=== PATIENT | female | born 1980 | race Caucasian/White ===

== ENCOUNTER 2016-07-09 11:37 | Emergency (ER) | payer BC ==
[2016-07-09] MEDS ORDERED: MORPHINE 4 MG/ML 1ML SYRINGE As Ordered ONE (12:20)
[2016-07-09 12:34] LABS: BASO % 0.5 % (0.0-1.0); EOS # 0.2 K/mm3 (0.0-0.50); EOS % 1.8 % (0.0-3.0); LARGE UNSTAINED CELL # 0.1 K/mm3 (0.0-0.4); LARGE UNSTAINED CELL % 1.3 % (0.0-4.0); LYMPH # 2.2 K/mm3 (1.5-4.5); LYMPH % 24.1 % (24.0-44.0); MEAN CORPUSCULAR HEMOGLOBIN 28.6 pg (27.0-33.0); MEAN CORPUSCULAR HGB CONC 33.5 g/dl (32.0-36.5); MEAN CORPUSCULAR VOLUME 85.5 fl (80.0-96.0); MONO # 0.4 K/mm3 (0.0-0.8); MONO % 4.9 % (0.0-5.0); NEUTROPHILS # 6.1 K/mm3 (1.8-7.7); NEUTROPHILS % 67.5 % (36.0-66.0); PLATELET COUNT, AUTOMATED 366 k/mm3 (150-450); RED CELL DISTRIBUTION WIDTH 12.2 % (11.5-14.5)
[2016-07-09 13:10] LABS: ALBUMIN 3.7 GM/DL (3.2-5.2); ALBUMIN/GLOBULIN RATIO 1.12 (1.00-1.93); ALKALINE PHOSPHATASE 65 U/L (45-117); ALT/SGPT 20 U/L (12-78); AMYLASE 51 U/L (25-115); ANION GAP 7 MEQ/L (8-16); AST/SGOT 7 U/L (15-37); BILIRUBIN,DIRECT 0.1 MG/DL (0.0-0.2); BILIRUBIN,TOTAL 0.4 MG/DL (0.2-1.0); BLOOD UREA NITROGEN 8 MG/DL (7-18); CALCIUM LEVEL 8.4 MG/DL (8.5-10.1); CARBON DIOXIDE LEVEL 27 MEQ/L (21-32); CHLORIDE LEVEL 107 MEQ/L (98-107); CREATININE FOR GFR 0.66 MG/DL (0.55-1.02); GLOMERULAR FILTRATION RATE > 60.0 (>60); GLUCOSE, FASTING 86 MG/DL (70-105); POTASSIUM SERUM 3.7 MEQ/L (3.5-5.1); SODIUM LEVEL 141 MEQ/L (136-145)
[2016-07-09] MEDS ORDERED: ISOVUE-370 76% 100ML VIAL (Q9967) As Ordered ONE (13:13)
[2016-07-09] MEDS ORDERED: KETOROLAC 30 MG/ML VIAL (J1885) As Ordered ONE (14:04)
--- NOTE | 2016-07-09 14:20 | REP ---
CT abdomen and pelvis with IV but without oral contrast: History: Appendicitis. CT contrast dose: 100 mL of Isovue 370 is administered intravenously. No comparison CT study. Findings: Digital heat treat supervisor radiograph shows an unremarkable gas pattern. The lung bases are clear. The liver and the spleen are normal in size and homogeneous in texture. No adrenal lesion is seen. The pancreas and the gallbladder are unremarkable. The kidneys enhance symmetrically and are morphologically intact. No retroperitoneal mass or adenopathy is seen. A normal appearing appendix is seen in the central pelvis. There is no CT evidence of appendicitis. No uterine or ovarian abnormality is seen on either side. No pelvic mass or adenopathy is seen. No free fluid is noted. Urinary bladder is unremarkable. No abdominal wall defect is seen. No bony destructive lesion is appreciated. Impression: No CT evidence of appendicitis. Negative CT study abdomen and pelvis with IV contrast. Signed by Parth Bond MD 07/09/2016 02:50 P
--- NOTE | 2016-07-09 15:27 | REP ---
PELVIC ULTRASOUND: Real-time sonographic evaluation of the pelvis is performed utilizing transabdominal and endovaginal technique. The urinary bladder measures 9.9 x 5.2 x 7.7 cm. Uterus measures 7.6 x 3.9 x 5.3 cm. Endometrial thickness is 3 mm. Junctional zone is not well defined and there is acoustic shadowing limiting evaluation of the endometrium. Findings suggest adenomyosis. Ovaries are normal in size and echotexture, right ovary measuring 3.6 x 1.9 x 2.7 cm and left ovary 4.0 x 2.5 x 3.0 cm. There is no adnexal mass or free fluid. No torsion is seen, with blood flow seen in each ovary with duplex Doppler evaluation. IMPRESSION: Findings suggesting adenomyosis of the uterus. Endometrial thickness approximately 3 mm. No adnexal mass, free fluid or torsion. Signed by Maurizio Salazar MD 07/09/2016 05:05 P
--- NOTE | 2016-07-09 16:13 | EDDOCDS ---
Nurse's Notes [facility] Name: Hailee Bond Age: 35 yrs Sex: Female : 1980 Arrival Date: 07/09/2016 Time: 11:37 Bed I4 / M4 Private MD: Markus Finley W Diagnosis: Pelvic and perineal pain-uterine adenomyosis Presentation: 07/09 11:53 Presenting complaint: Patient states: dr Finley sent for possible appendicitis. Patient hs1 states abdominal pain started a couple days ago and has been on and off. Patient started to be steady around 730pm. Patient denies nausea and states no appetite for a couple days. Adult Sepsis Screening: The patient does not have new or worsening altered mentation. Patient's respiratory rate is less than 22. Systolic blood pressure is greater than 100. Patient has a qSOFA score of 0- Negative Sepsis Screen. Suicide/Homicide risk assessment- the patient denies having any suicidal and/or homicidal ideations and does not present with any other emotional, behavioral or mental health complaints. Status: Patient is not a water pump servicer or dependent. Transition of care: patient was not received from another setting of care. 11:53 Acuity: AMAYA Level 3 hs1 11:53 Method Of Arrival: Walkin/Carried/Asstd hs1 Triage Assessment: 11:56 General: Appears in no apparent distress, Behavior is appropriate for age, cooperative. hs1 Pain: Pain currently is 8 out of 10 on a pain scale. HIV screening NA for this visit Offered previously. Neurological: No deficits noted. Respiratory: No deficits noted. GI: Reports nausea, no appetite. Derm: Skin is pink, warm & dry. normal. Historical: - Allergies: SULFA (SULFONAMIDES); - Home Meds: 1. none - PMHx: none; - PSHx: ablation uterine; Bladder suspension; D & C; - Social history: Smoking status: Patient states was never smoker of tobacco. No barriers to communication noted, The patient speaks fluent Mexican, Speaks appropriately for age. - Family history: Not pertinent. - : The pt / caregiver states he / she is not on anticoagulants. Home medication list is obtained from the patient. - Exposure Risk Screening:: None identified. Screenin:25 Screening information is obtained from the patient. Fall risk: No risks identified. khadra Assistance ADL's: requires no assistance with activities of daily living. Abuse/DV Screen: The patient / caregiver reports he/she is: not in a situation that causes fear, pain or injury. Nutritional screening: No deficits noted. Advance Directives: Currently, there is no health care proxy. There is no active DNR order. There is no living will. There is no Power of Shoer. Advance directive information has not previously been placed in an [facility] medical record. home support is adequate. Assessment: 12:25 General: Appears in no apparent distress, skin warm and dry color satisfactory. moist jmk pink oral mucosa/ indicates right groin pain. abd soft and non distended with bowel sounds present x 4. + rebound tenderness . GI: Abdomen is non- distended obese, Bowel sounds present X 4 quads. Abd is soft X 4 quads Abd is tender to palpation in right lower quadrant and left lower quadrant Abdomen has rebound tenderness in right lower quadrant. 12:57 General: Appears states pain has decreased to 7/10. jmk 13:22 General: Pt ambulatory to CT and returned IV site remains patent and clear.. dls Vital Signs: 11:38 BP 131 / 69; Pulse 70; Resp 18 S; Temp 97.4(O); Pulse Ox 100% on R/A; Weight 82.55 kg dd6 (R); Height 5 ft. 4 in. (162.56 cm) (R); 12:38 BP 110 / 55; Pulse 66; Resp 20; Temp 98.2(TE); Pulse Ox 98% on R/A; Pain 7/10; jml1 16:00 BP 107 / 57; Pulse 62; Resp 20; Temp 97.7(O); Pulse Ox 98% on R/A; Pain 0/10; jml1 11:38 Body Mass Index 31.24 (82.55 kg, 162.56 cm) dd6 Vitals: 11:38 Log In Time: July 09, 2016 at 11:36. dd6 ED Course: 11:38 Patient visited by Bassam Watkins PCA. dd6 11:38 Markus Finley is Private Physician. dd6 11:38 Patient moved to Waiting dd6 11:39 Patient moved to Pre RCE dd6 11:54 Triage Initiated hs1 11:56 Patient moved to Triage 2 hs1 11:57 [facility]izwan Canales [facility]C [facility] ar2 11:57 Jl Nuñez MD is Attending Physician. ar2 11:58 Patient visited by Rizwan Canales PA-C. ar2 12:02 Patient moved to I4 / M4 js13 12:18 Patient visited by Candido Marques. jml1 12:18 UA Sent. jml1 12:25 The patient / caregiver is instructed regarding the plan of care and ED course. jmk 12:25 Inserted saline lock: 20 gauge in right antecubital area. jmk 12:27 Patient visited by Ky Sears,RN. jmk 12:39 Patient visited by Candido Marques. jml1 12:58 Patient visited by Ky Sears,SILVIO. jmk 13:54 Patient name changed from Hailee\S\\S\Bond\S\ to Hailee\S\ \S\Bond. EDMS 13:55 [facility] Payment Agreement was scanned into [employer] and attached to record. lg 14:00 CT ABD & PELVIS: IV Contrast Only Returned. dls 14:01 Patient visited by Mindy Morales RN. dls 14:03 Patient moved to Ultrasound eg2 14:38 Patient moved to I4 / M4 eg2 14:44 CT ABD & PELVIS: IV Contrast Only Returned. EDMS 15:02 Patient visited by Candido Marques. jml1 15:40 Lakeisha Swift MD is Referral Physician. ar2 15:57 -US Pelvic Non-Ob Complete Returned. EDMS 15:57 DUPLEX SCAN LIMITED (DOPPLER)+US Returned. EDMS 15:57 Transvaginal NON- US Returned. EDMS 16:00 Patient visited by Candido Marques. jml1 16:11 No procedures done that require assistance. dls 16:11 Discontinued IV lock intact, bleeding controlled, pressure dressing applied, No dls redness/swelling at site. Administered Medications: 12:24 Drug: morphine 4 mg Route: IVP; Site: right antecubital; jmk 12:25 Drug: NS 0.9% 1000 ml Route: IV; Rate: bolus; Site: right antecubital; jmk 16:09 Follow up: IV Status: Completed infusion dls 14:47 Drug: ketorolac 30 mg [ketorolac 30 mg/mL (1 mL) injection solution (1 mL)] Route: IVP; dls Site: right antecubital; Point of Care Testing: Urine : 12:17 hCG Reading: Negative; jml1 Ranges: Order Results: Lab Order: Amylase; SPEC'M 07/09/16 12:38 Test: AMYLASE; Value: 51; Range: 25-115; Units: U/L; Status: F Lab Order: Basic Metabolic Profile; SPEC'M 07/09/16 12:38 Test: GLUCOSE, FASTING; Value: 86; Range: 70-105; Units: MG/DL; Status: F Test: BLOOD UREA NITROGEN; Value: 8; Range: 7-18; Units: MG/DL; Status: F Test: CREATININE FOR GFR; Value: 0.66; Range: 0.55-1.02; Units: MG/DL; Status: F Test: GLOMERULAR FILTRATION RATE; Value: > 60.0; Range: >60; Status: F Test: SODIUM LEVEL; Value: 141; Range: 136-145; Units: MEQ/L; Status: F Test: POTASSIUM SERUM; Value: 3.7; Range: 3.5-5.1; Units: MEQ/L; Status: F Test: CHLORIDE LEVEL; Value: 107; Range: 98-107; Units: MEQ/L; Status: F Test: CARBON DIOXIDE LEVEL; Value: 27; Range: 21-32; Units: MEQ/L; Status: F Test: ANION GAP; Value: 7; Range: 8-16; Abnormal: Below low normal; Units: MEQ/L; Status: F Test: CALCIUM LEVEL; Value: 8.4; Range: 8.5-10.1; Abnormal: Below low normal; Units: MG/DL; Status: F Test Note: ; Units are mL/min/1.73 m2 Chronic Kidney Disease Staging per NKF: Stage I & II GFR >=60 Normal to Mildly Decreased Stage III GFR 30-59 Moderately Decreased Stage IV GFR 15-29 Severely Decreased Stage V GFR <15 Very Little GFR Left ESRD GFR <15 on DIRECTOR SECURITY MANAGEMENT Lab Order: CBC with Diff; SPEC'M 07/09/16 12:13 Test: WHITE BLOOD COUNT; Value: 9.0; Range: 4.0-10.0; Units: K/mm3; Status: F Test: RED BLOOD COUNT; Value: 4.82; Range: 4.00-5.40; Units: M/mm3; Status: F Test: HEMOGLOBIN; Value: 13.8; Range: 12.0-16.0; Units: g/dl; Status: F Test: HEMATOCRIT; Value: 41.2; Range: 36.0-47.0; Units: %; Status: F Test: MEAN CORPUSCULAR VOLUME; Value: 85.5; Range: 80.0-96.0; Units: fl; Status: F Test: MEAN CORPUSCULAR HEMOGLOBIN; Value: 28.6; Range: 27.0-33.0; Units: pg; Status: F Test: MEAN CORPUSCULAR HGB CONC; Value: 33.5; Range: 32.0-36.5; Units: g/dl; Status: F Test: RED CELL DISTRIBUTION WIDTH; Value: 12.2; Range: 11.5-14.5; Units: %; Status: F Test: PLATELET COUNT, AUTOMATED; Value: 366; Range: 150-450; Units: k/mm3; Status: F Test: NEUTROPHILS %; Value: 67.5; Range: 36.0-66.0; Abnormal: Above high normal; Units: %; Status: F Test: LYMPH %; Value: 24.1; Range: 24.0-44.0; Units: %; Status: F Test: MONO %; Value: 4.9; Range: 0.0-5.0; Units: %; Status: F Test: EOS %; Value: 1.8; Range: 0.0-3.0; Units: %; Status: F Test: BASO %; Value: 0.5; Range: 0.0-1.0; Units: %; Status: F Test: LARGE UNSTAINED CELL %; Value: 1.3; Range: 0.0-4.0; Units: %; Status: F Test: NEUTROPHILS #; Value: 6.1; Range: 1.8-7.7; Units: K/mm3; Status: F Test: LYMPH #; Value: 2.2; Range: 1.5-4.5; Units: K/mm3; Status: F Test: MONO #; Value: 0.4; Range: 0.0-0.8; Units: K/mm3; Status: F Test: EOS #; Value: 0.2; Range: 0.0-0.50; Units: K/mm3; Status: F Test: BASO #; Value: 0.0; Range: 0.0-0.2; Units: K/mm3; Status: F Test: LARGE UNSTAINED CELL #; Value: 0.1; Range: 0.0-0.4; Units: K/mm3; Status: F Lab Order: Lipase; SPEC'M 07/09/16 12:38 Test: LIPASE; Value: 108; Range: 73-393; Units: U/L; Status: F Lab Order: Liver Profile; SPEC'M 07/09/16 12:38 Test: AST/SGOT; Value: 7; Range: 15-37; Abnormal: Below low normal; Units: U/L; Status: F Test: ALT/SGPT; Value: 20; Range: 12-78; Units: U/L; Status: F Test: ALKALINE PHOSPHATASE; Value: 65; Range: 45-117; Units: U/L; Status: F Test: BILIRUBIN,TOTAL; Value: 0.4; Range: 0.2-1.0; Units: MG/DL; Status: F Test: BILIRUBIN,DIRECT; Value: 0.1; Range: 0.0-0.2; Units: MG/DL; Status: F Test: TOTAL PROTEIN; Value: 7.0; Range: 6.4-8.2; Units: GM/DL; Status: F Test: ALBUMIN; Value: 3.7; Range: 3.2-5.2; Units: GM/DL; Status: F Test: ALBUMIN/GLOBULIN RATIO; Value: 1.12; Range: 1.00-1.93; Status: F Lab Order: UA; SPEC'M 07/09/16 12:13 Test: APPEARANCE, URINE; Value: CLEAR; Range: CLEAR; Status: F Test: COLOR, URINE; Value: STRAW; Range: YELLOW; Status: F Test: PH,URINE; Value: 7.0; Range: 5.0-9.0; Units: UNITS; Status: F Test: SPECIFIC GRAVITY URINE AUTO; Value: 1.008; Range: 1.002-1.035; Status: F Test: PROTEIN, URINE AUTO; Value: NEGATIVE; Range: NEGATIVE; Units: mg/dL; Status: F Test: GLUCOSE, URINE (UA) AUTO; Value: NEGATIVE; Range: NEGATIVE; Units: mg/dL; Status: F Test: KETONE, URINE AUTO; Value: NEGATIVE; Range: NEGATIVE; Units: mg/dL; Status: F Test: UROBILINOGEN, URINE AUTO; Value: 0.2; Range: 0.0-2.0; Units: mg/dL; Status: F Test: BILIRUBIN, URINE AUTO; Value: NEGATIVE; Range: NEGATIVE; Status: F Test: NITRITE, URINE AUTO; Value: NEGATIVE; Range: NEGATIVE; Status: F Test: LEUKOCYTE ESTERASE, URINE AUTO; Value: NEGATIVE; Range: NEGATIVE; Status: F Test: BLOOD, URINE BLOOD; Value: NEGATIVE; Range: NEGATIVE; Status: F Test: WBC, URINE AUTO; Value: 1; Range: 0-3; Units: /HPF; Status: F Test: RBC, URINE AUTO; Value: 1; Range: 0-3; Units: /HPF; Status: F Test: BACTERIA, URINE AUTO; Value: NEGATIVE; Range: NEGATIVE; Status: F Test: SQUAMOUS EPITHELIAL CELL UR AU; Value: 2; Range: 0-6; Units: /HPF; Status: F Test: HYALINE CAST, URINE AUTO; Value: 0; Range: 0-1; Units: /LPF; Status: F Radiology Order: CT ABD & PELVIS: IV Contrast Only Test: CT ABD & PELVIS: IV Contrast Only REASON FOR EXAMINATION: Appendicitis; CT abdomen and pelvis with IV but without oral contrast:; ; History: Appendicitis.; ; CT contrast dose: 100 mL of Isovue 370 is administered intravenously. No; comparison CT study.; ; Findings: Digital creative technologist radiograph shows an unremarkable gas pattern. The lung; bases are clear.; ; The liver and the spleen are normal in size and homogeneous in texture. No; adrenal lesion is seen. The pancreas and the gallbladder are unremarkable. The; kidneys enhance symmetrically and are morphologically intact. No retroperitoneal; mass or adenopathy is seen. A normal appearing appendix is seen in the central; pelvis. There is no CT evidence of appendicitis. No uterine or ovarian; abnormality is seen on either side. No pelvic mass or adenopathy is seen. No; free fluid is noted. Urinary bladder is unremarkable. No abdominal wall defect; is seen. No bony destructive lesion is appreciated.; ; Impression:; ; No CT evidence of appendicitis. Negative CT study abdomen and pelvis with IV; contrast.; ; ; Signed by; Parth Bond MD 07/09/2016 02:50 P; Radiology Order: -US Pelvic Non-Ob Complete Test: -US Pelvic Non-Ob Complete REASON FOR EXAMINATION: right;Adnexal Pain r/o Torsion; ; PELVIC ULTRASOUND:; ; Real-time sonographic evaluation of the pelvis is performed utilizing; transabdominal and endovaginal technique. The urinary bladder measures 9.9 x 5.2; x 7.7 cm. Uterus measures 7.6 x 3.9 x 5.3 cm. Endometrial thickness is 3 mm.; Junctional zone is not well defined and there is acoustic shadowing limiting; evaluation of the endometrium. Findings suggest adenomyosis. Ovaries are normal; in size and echotexture, right ovary measuring 3.6 x 1.9 x 2.7 cm and left ovary; 4.0 x 2.5 x 3.0 cm. There is no adnexal mass or free fluid. No torsion is seen,; with blood flow seen in each ovary with duplex Doppler evaluation.; ; IMPRESSION:; Findings suggesting adenomyosis of the uterus. Endometrial thickness; approximately 3 mm. No adnexal mass, free fluid or torsion.; ; ; ; Unreviewed; Radiology Order: DUPLEX SCAN LIMITED (DOPPLER)+US Test: DUPLEX SCAN LIMITED (DOPPLER)+US REASON FOR EXAMINATION: Adnexal Pain r/o Torsion; ; PELVIC ULTRASOUND:; ; Real-time sonographic evaluation of the pelvis is performed utilizing; transabdominal and endovaginal technique. The urinary bladder measures 9.9 x 5.2; x 7.7 cm. Uterus measures 7.6 x 3.9 x 5.3 cm. Endometrial thickness is 3 mm.; Junctional zone is not well defined and there is acoustic shadowing limiting; evaluation of the endometrium. Findings suggest adenomyosis. Ovaries are normal; in size and echotexture, right ovary measuring 3.6 x 1.9 x 2.7 cm and left ovary; 4.0 x 2.5 x 3.0 cm. There is no adnexal mass or free fluid. No torsion is seen,; with blood flow seen in each ovary with duplex Doppler evaluation.; ; IMPRESSION:; Findings suggesting adenomyosis of the uterus. Endometrial thickness; approximately 3 mm. No adnexal mass, free fluid or torsion.; ; ; ; Unreviewed; Radiology Order: Transvaginal NON- US Test: Transvaginal NON- US REASON FOR EXAMINATION: EVALUATE UTERUS AND OVARIES; ; PELVIC ULTRASOUND:; ; Real-time sonographic evaluation of the pelvis is performed utilizing; transabdominal and endovaginal technique. The urinary bladder measures 9.9 x 5.2; x 7.7 cm. Uterus measures 7.6 x 3.9 x 5.3 cm. Endometrial thickness is 3 mm.; Junctional zone is not well defined and there is acoustic shadowing limiting; evaluation of the endometrium. Findings suggest adenomyosis. Ovaries are normal; in size and echotexture, right ovary measuring 3.6 x 1.9 x 2.7 cm and left ovary; 4.0 x 2.5 x 3.0 cm. There is no adnexal mass or free fluid. No torsion is seen,; with blood flow seen in each ovary with duplex Doppler evaluation.; ; IMPRESSION:; Findings suggesting adenomyosis of the uterus. Endometrial thickness; approximately 3 mm. No adnexal mass, free fluid or torsion.; ; ; ; Unreviewed; Outcome: 15:41 Discharge ordered by Provider. ar2 16:11 Discharge Assessment: Patient awake, alert and oriented x 3. No cognitive and/or dls functional deficits noted. Patient verbalized understanding of disposition instructions. patient administered narcotics - no. The following High Risk Discharge criteria are identified: None. Discharged to home ambulatory, with significant other. Condition: stable Condition: improved. Discharge instructions given to patient, Instructed on discharge instructions, follow up and referral plans. medication usage, Demonstrated understanding of instructions, medications, Pt was receptive of discharge instructions/ teaching. Prescriptions given X 1. CT Study completed. Property sent home with patient. 16:13 Patient left the ED. dls Signatures: Dispatcher [employer] EDMS Ky Sears,RN RN Mindy Alvarez RN RN dls Carola Pineda, Emery Reg Tania Bucio eg2 Rizwan Canales PA-C PA-C ar2 Bassam Watkins, TRANSFORMER MECHANIC TRANSFORMER MECHANIC dd6 Cammy Ortez RN RN hs1 Candido Marques jml1 Perez,Thania,RN RN js13 MTDD
--- NOTE | 2016-07-09 16:13 | EDDOCDS ---
Physician Documentation [facility] Name: Hailee Bond Age: 35 yrs Sex: Female : 1980 Arrival Date: 07/09/2016 Time: 11:37 Bed I4 / M4 Private MD: Markus Finley W Disposition: 07/09/16 15:41 Discharged to Home/Self Care. Impression: Pelvic and perineal pain - uterine adenomyosis. - Condition is Stable. - Discharge Instructions: Pelvic Pain, Female. - Prescriptions for Ibuprofen 800 mg Oral Tablet - take 1 tablet by ORAL route every 8 hours As needed take with food; 30 tablet. - Medication Reconciliation, Local Pharmacy Hours form. - Follow up: Lakeisha Swift MD; When: Call to arrange an appointment; Reason: Recheck today's complaints, Continuance of care. - Problem is new. - Symptoms have improved. Historical: - Allergies: SULFA (SULFONAMIDES); - Home Meds: 1. none - PMHx: none; - PSHx: ablation uterine; Bladder suspension; D & C; - Social history: Smoking status: Patient states was never smoker of tobacco. No barriers to communication noted, The patient speaks fluent Arabic, Speaks appropriately for age. - Family history: Not pertinent. - : The pt / caregiver states he / she is not on anticoagulants. Home medication list is obtained from the patient. - Exposure Risk Screening:: None identified. Vital Signs: 07/09 11:38 BP 131 / 69; Pulse 70; Resp 18 S; Temp 97.4(O); Pulse Ox 100% on R/A; Weight 82.55 kg / dd6 181.99 lbs (R); Height 5 ft. 4 in. (162.56 cm) (R); 12:38 BP 110 / 55; Pulse 66; Resp 20; Temp 98.2(TE); Pulse Ox 98% on R/A; Pain 7/10; jml1 16:00 BP 107 / 57; Pulse 62; Resp 20; Temp 97.7(O); Pulse Ox 98% on R/A; Pain 0/10; jml1 11:38 Body Mass Index 31.24 (82.55 kg, 162.56 cm) dd6 MDM: 12:04 IV Saline Lock ordered. ar2 12:04 Undress patient appropriately for examination ordered. ar2 12:04 UCG by Nursing ordered. ar2 12:04 morphine 4 mg IVP once ordered. ar2 12:04 NS 0.9% 1000 ml IV at bolus once ordered. ar2 12:05 Amylase Ordered. EDMS 12:05 Basic Metabolic Profile Ordered. EDMS 12:05 CBC with Diff Ordered. EDMS 12:05 Lipase Ordered. EDMS 12:05 Liver Profile Ordered. EDMS 12:05 UA Ordered. EDMS 12:05 NOTHING BY MOUTH+DIET ordered. EDMS 12:28 CT ABD & PELVIS: IV Contrast Only Ordered. EDMS 12:31 Financial registration complete. lg 13:05 CBC with Diff Reviewed. ar2 13:05 UA Reviewed. ar2 13:53 Basic Metabolic Profile Reviewed. ar2 13:53 Liver Profile Reviewed. ar2 13:53 Amylase Reviewed. ar2 13:53 Lipase Reviewed. ar2 13:54 ketorolac 30 mg IVP once ordered. ar2 13:55 [facility] Payment Agreement was scanned into [employer] and attached to record. lg 13:55 -US Pelvic Non-Ob Complete Ordered. EDMS 13:55 DUPLEX SCAN LIMITED (DOPPLER)+US Ordered. EDMS 14:21 Transvaginal NON- US Ordered. EDMS Point of Care Testing: Urine : 12:17 hCG Reading: Negative; jml1 Ranges: Administered Medications: 12:24 Drug: morphine 4 mg Route: IVP; Site: right antecubital; jmk 12:25 Drug: NS 0.9% 1000 ml Route: IV; Rate: bolus; Site: right antecubital; jmk 16:09 Follow up: IV Status: Completed infusion dls 14:47 Drug: ketorolac 30 mg [ketorolac 30 mg/mL (1 mL) injection solution (1 mL)] Route: IVP; dls Site: right antecubital; Signatures: Dispatcher [employer] EDMS Ky Sears RN RN jmk Scott, Debra, RN RN dls Ganter, LoriLee, Emery Land lg Rizwan Canales, PA-C PA-C ar2 Cammy Ortez RN RN hs1 The chart was reviewed and I authenticate all verbal orders and agree with the evaluation and treatment provided.Attachments: 13:55 [facility] Payment Agreement lg MTDD
--- NOTE | 2016-07-11 17:13 | EDDOCDS ---
Physician Documentation [facility] Name: Hailee Bond Age: 35 yrs Sex: Female : 1980 Arrival Date: 07/09/2016 Time: 11:37 Bed I4 / M4 Private MD: Markus Finley W Disposition: 07/09/16 15:41 Discharged to Home/Self Care. Impression: Pelvic and perineal pain - uterine adenomyosis. - Condition is Stable. - Discharge Instructions: Pelvic Pain, Female. - Prescriptions for Ibuprofen 800 mg Oral Tablet - take 1 tablet by ORAL route every 8 hours As needed take with food; 30 tablet. - Medication Reconciliation, Local Pharmacy Hours form. - Follow up: Lakeisha Swift MD; When: Call to arrange an appointment; Reason: Recheck today's complaints, Continuance of care. - Problem is new. - Symptoms have improved. Historical: - Allergies: SULFA (SULFONAMIDES); - Home Meds: 1. none - PMHx: none; - PSHx: ablation uterine; Bladder suspension; D & C; - Social history: Smoking status: Patient states was never smoker of tobacco. No barriers to communication noted, The patient speaks fluent [place], Speaks appropriately for age. - Family history: Not pertinent. - : The pt / caregiver states he / she is not on anticoagulants. Home medication list is obtained from the patient. - Exposure Risk Screening:: None identified. Vital Signs: 07/09 11:38 BP 131 / 69; Pulse 70; Resp 18 S; Temp 97.4(O); Pulse Ox 100% on R/A; Weight 82.55 kg / dd6 181.99 lbs (R); Height 5 ft. 4 in. (162.56 cm) (R); 12:38 BP 110 / 55; Pulse 66; Resp 20; Temp 98.2(TE); Pulse Ox 98% on R/A; Pain 7/10; jml1 16:00 BP 107 / 57; Pulse 62; Resp 20; Temp 97.7(O); Pulse Ox 98% on R/A; Pain 0/10; jml1 11:38 Body Mass Index 31.24 (82.55 kg, 162.56 cm) dd6 MDM: 12:04 IV Saline Lock ordered. ar2 12:04 Undress patient appropriately for examination ordered. ar2 12:04 UCG by Nursing ordered. ar2 12:04 morphine 4 mg IVP once ordered. ar2 12:04 NS 0.9% 1000 ml IV at bolus once ordered. ar2 12:05 Amylase Ordered. EDMS 12:05 Basic Metabolic Profile Ordered. EDMS 12:05 CBC with Diff Ordered. EDMS 12:05 Lipase Ordered. EDMS 12:05 Liver Profile Ordered. EDMS 12:05 UA Ordered. EDMS 12:05 NOTHING BY MOUTH+DIET ordered. EDMS 12:28 CT ABD & PELVIS: IV Contrast Only Ordered. EDMS 12:31 Financial registration complete. lg 13:05 CBC with Diff Reviewed. ar2 13:05 UA Reviewed. ar2 13:53 Basic Metabolic Profile Reviewed. ar2 13:53 Liver Profile Reviewed. ar2 13:53 Amylase Reviewed. ar2 13:53 Lipase Reviewed. ar2 13:54 ketorolac 30 mg IVP once ordered. ar2 13:55 [facility] [place] Payment Agreement was scanned into [employer] and attached to record. lg 13:55 -US Pelvic Non-Ob Complete Ordered. EDMS 13:55 DUPLEX SCAN LIMITED (DOPPLER)+US Ordered. EDMS 14:21 Transvaginal NON- US Ordered. EDMS 07/10 11:05 T-Sheet-- Draft Copy was scanned into [employer] and attached to record. gb 11:05 Radiology Report was scanned into [employer] and attached to record. gb 21:02 ED course: dr swift faxed formal report of pelvic us for fu mlg. ml Point of Care Testing: Urine : 07/09 12:17 hCG Reading: Negative; jml1 Ranges: Administered Medications: 12:24 Drug: morphine 4 mg Route: IVP; Site: right antecubital; jmk 12:25 Drug: NS 0.9% 1000 ml Route: IV; Rate: bolus; Site: right antecubital; jmk 16:09 Follow up: IV Status: Completed infusion dls 14:47 Drug: ketorolac 30 mg [ketorolac 30 mg/mL (1 mL) injection solution (1 mL)] Route: IVP; dls Site: right antecubital; Signatures: Dispatcher MedHoROKT EDGA Jl Nuñez MD MD ml Knapp, Jean, RN RN Mindy Alvarez RN RN Therese Alarcon, Reg Reg gb Carola Pineda, Reg Reg lg Rizwan Canales PA-C PAMonica ar2 Cammy Ortez RN RN hs1 The chart was reviewed and I authenticate all verbal orders and agree with the evaluation and treatment provided.Attachments: 13:55 [facility] Payment Agreement lg 07/10 11:05 T-Sheet-- Draft Copy gb Chart Complete MTDD
--- NOTE | 2016-07-11 17:13 | EDDOCDS ---
Physician Documentation [facility] [place] Name: Hailee Bond Age: 35 yrs Sex: Female : 1980 Arrival Date: 07/09/2016 Time: 11:37 Bed I4 / M4 Private MD: Markus Finley W Disposition: 07/09/16 15:41 Discharged to Home/Self Care. Impression: Pelvic and perineal pain - uterine adenomyosis. - Condition is Stable. - Discharge Instructions: Pelvic Pain, Female. - Prescriptions for Ibuprofen 800 mg Oral Tablet - take 1 tablet by ORAL route every 8 hours As needed take with food; 30 tablet. - Medication Reconciliation, Local Pharmacy Hours form. - Follow up: Lakeisha Swift MD; When: Call to arrange an appointment; Reason: Recheck today's complaints, Continuance of care. - Problem is new. - Symptoms have improved. Historical: - Allergies: SULFA (SULFONAMIDES); - Home Meds: 1. none - PMHx: none; - PSHx: ablation uterine; Bladder suspension; D & C; - Social history: Smoking status: Patient states was never smoker of tobacco. No barriers to communication noted, The patient speaks fluent [place], Speaks appropriately for age. - Family history: Not pertinent. - : The pt / caregiver states he / she is not on anticoagulants. Home medication list is obtained from the patient. - Exposure Risk Screening:: None identified. Vital Signs: 07/09 11:38 BP 131 / 69; Pulse 70; Resp 18 S; Temp 97.4(O); Pulse Ox 100% on R/A; Weight 82.55 kg / dd6 181.99 lbs (R); Height 5 ft. 4 in. (162.56 cm) (R); 12:38 BP 110 / 55; Pulse 66; Resp 20; Temp 98.2(TE); Pulse Ox 98% on R/A; Pain 7/10; jml1 16:00 BP 107 / 57; Pulse 62; Resp 20; Temp 97.7(O); Pulse Ox 98% on R/A; Pain 0/10; jml1 11:38 Body Mass Index 31.24 (82.55 kg, 162.56 cm) dd6 MDM: 12:04 IV Saline Lock ordered. ar2 12:04 Undress patient appropriately for examination ordered. ar2 12:04 UCG by Nursing ordered. ar2 12:04 morphine 4 mg IVP once ordered. ar2 12:04 NS 0.9% 1000 ml IV at bolus once ordered. ar2 12:05 Amylase Ordered. EDMS 12:05 Basic Metabolic Profile Ordered. EDMS 12:05 CBC with Diff Ordered. EDMS 12:05 Lipase Ordered. EDMS 12:05 Liver Profile Ordered. EDMS 12:05 UA Ordered. EDMS 12:05 NOTHING BY MOUTH+DIET ordered. EDMS 12:28 CT ABD & PELVIS: IV Contrast Only Ordered. EDMS 12:31 Financial registration complete. lg 13:05 CBC with Diff Reviewed. ar2 13:05 UA Reviewed. ar2 13:53 Basic Metabolic Profile Reviewed. ar2 13:53 Liver Profile Reviewed. ar2 13:53 Amylase Reviewed. ar2 13:53 Lipase Reviewed. ar2 13:54 ketorolac 30 mg IVP once ordered. ar2 13:55 [facility] Agreement was scanned into [employer] and attached to record. lg 13:55 -US Pelvic Non-Ob Complete Ordered. EDMS 13:55 DUPLEX SCAN LIMITED (DOPPLER)+US Ordered. EDMS 14:21 Transvaginal NON- US Ordered. EDMS 07/10 11:05 T-Sheet-- Draft Copy was scanned into [employer] and attached to record. gb 11:05 Radiology Report was scanned into [employer] and attached to record. gb 21:02 ED course: dr swift faxed formal report of pelvic us for fu mlg. ml Point of Care Testing: Urine : 07/09 12:17 hCG Reading: Negative; jml1 Ranges: Administered Medications: 12:24 Drug: morphine 4 mg Route: IVP; Site: right antecubital; jmk 12:25 Drug: NS 0.9% 1000 ml Route: IV; Rate: bolus; Site: right antecubital; jmk 16:09 Follow up: IV Status: Completed infusion dls 14:47 Drug: ketorolac 30 mg [ketorolac 30 mg/mL (1 mL) injection solution (1 mL)] Route: IVP; dls Site: right antecubital; Signatures: Dispatcher MedHoJumpStart EDIN Jl Nuñez MD MD ml Knapp, Jean, RN RN Mindy Alvarez RN RN Therese Alarcon, Reg Reg gb Carola Pineda, Reg Reg lg Rizwan Canales PA-C PAMonica ar2 Cammy Ortez RN RN hs1 The chart was reviewed and I authenticate all verbal orders and agree with the evaluation and treatment provided.Attachments: 13:55 [facility] Payment Agreement lg 07/10 11:05 T-Sheet-- Draft Copy gb Chart Complete MTDD
--- NOTE | 2016-07-11 17:13 | EDDOCDS ---
Nurse's Notes [facility] Name: Hailee Bond Age: 35 yrs Sex: Female : 1980 Arrival Date: 07/09/2016 Time: 11:37 Bed I4 / M4 Private MD: Markus Finley W Diagnosis: Pelvic and perineal pain-uterine adenomyosis Presentation: 07/09 11:53 Presenting complaint: Patient states: dr Finley sent for possible appendicitis. Patient hs1 states abdominal pain started a couple days ago and has been on and off. Patient started to be steady around 730pm. Patient denies nausea and states no appetite for a couple days. Adult Sepsis Screening: The patient does not have new or worsening altered mentation. Patient's respiratory rate is less than 22. Systolic blood pressure is greater than 100. Patient has a qSOFA score of 0- Negative Sepsis Screen. Suicide/Homicide risk assessment- the patient denies having any suicidal and/or homicidal ideations and does not present with any other emotional, behavioral or mental health complaints. Status: Patient is not a services advisor or dependent. Transition of care: patient was not received from another setting of care. 11:53 Acuity: AMAYA Level 3 hs1 11:53 Method Of Arrival: Walkin/Carried/Asstd hs1 Triage Assessment: 11:56 General: Appears in no apparent distress, Behavior is appropriate for age, cooperative. hs1 Pain: Pain currently is 8 out of 10 on a pain scale. HIV screening NA for this visit Offered previously. Neurological: No deficits noted. Respiratory: No deficits noted. GI: Reports nausea, no appetite. Derm: Skin is pink, warm & dry. normal. Historical: - Allergies: SULFA (SULFONAMIDES); - Home Meds: 1. none - PMHx: none; - PSHx: ablation uterine; Bladder suspension; D & C; - Social history: Smoking status: Patient states was never smoker of tobacco. No barriers to communication noted, The patient speaks fluent Senegalese, Speaks appropriately for age. - Family history: Not pertinent. - : The pt / caregiver states he / she is not on anticoagulants. Home medication list is obtained from the patient. - Exposure Risk Screening:: None identified. Screenin:25 Screening information is obtained from the patient. Fall risk: No risks identified. khadra Assistance ADL's: requires no assistance with activities of daily living. Abuse/DV Screen: The patient / caregiver reports he/she is: not in a situation that causes fear, pain or injury. Nutritional screening: No deficits noted. Advance Directives: Currently, there is no health care proxy. There is no active DNR order. There is no living will. There is no Power of Neighborhood Aide. Advance directive information has not previously been placed in an [facility] medical record. home support is adequate. Assessment: 12:25 General: Appears in no apparent distress, skin warm and dry color satisfactory. moist jmk pink oral mucosa/ indicates right groin pain. abd soft and non distended with bowel sounds present x 4. + rebound tenderness . GI: Abdomen is non- distended obese, Bowel sounds present X 4 quads. Abd is soft X 4 quads Abd is tender to palpation in right lower quadrant and left lower quadrant Abdomen has rebound tenderness in right lower quadrant. 12:57 General: Appears states pain has decreased to 7/10. jmk 13:22 General: Pt ambulatory to CT and returned IV site remains patent and clear.. dls Vital Signs: 11:38 BP 131 / 69; Pulse 70; Resp 18 S; Temp 97.4(O); Pulse Ox 100% on R/A; Weight 82.55 kg dd6 (R); Height 5 ft. 4 in. (162.56 cm) (R); 12:38 BP 110 / 55; Pulse 66; Resp 20; Temp 98.2(TE); Pulse Ox 98% on R/A; Pain 7/10; jml1 16:00 BP 107 / 57; Pulse 62; Resp 20; Temp 97.7(O); Pulse Ox 98% on R/A; Pain 0/10; jml1 11:38 Body Mass Index 31.24 (82.55 kg, 162.56 cm) dd6 Vitals: 11:38 Log In Time: July 09, 2016 at 11:36. dd6 ED Course: 11:38 Patient visited by Bassam Watkins PCA. dd6 11:38 Markus Finley is Private Physician. dd6 11:38 Patient moved to Waiting dd6 11:39 Patient moved to Pre RCE dd6 11:54 Triage Initiated hs1 11:56 Patient moved to Triage 2 hs1 11:57 [facility] Canales [facility] ar2 11:57 Jl Nuñez MD is Attending Physician. ar2 11:58 Patient visited by Rizwan Canales PA-C. ar2 12:02 Patient moved to I4 / M4 js13 12:18 Patient visited by Candido Marques. jml1 12:18 UA Sent. jml1 12:25 The patient / caregiver is instructed regarding the plan of care and ED course. jmk 12:25 Inserted saline lock: 20 gauge in right antecubital area. jmk 12:27 Patient visited by Ky Sears,RN. jmk 12:39 Patient visited by Candido Marques. jml1 12:58 Patient visited by Ky Sears,RN. jmk 13:54 Patient name changed from Hailee\S\\S\Bond\S\ to Hailee\S\ \S\Bond. EDMS 13:55 [facility] Payment Agreement was scanned into [employer] and attached to record. lg 14:00 CT ABD & PELVIS: IV Contrast Only Returned. dls 14:01 Patient visited by Mindy Morales, SILVIO. dls 14:03 Patient moved to Ultrasound eg2 14:38 Patient moved to I4 / M4 eg2 14:44 CT ABD & PELVIS: IV Contrast Only Returned. EDMS 15:02 Patient visited by Candido Marques. jml1 15:40 Lakeisha Swift MD is Referral Physician. ar2 15:57 -US Pelvic Non-Ob Complete Returned. EDMS 15:57 DUPLEX SCAN LIMITED (DOPPLER)+US Returned. EDMS 15:57 Transvaginal NON- US Returned. EDMS 16:00 Patient visited by Candido Marques. jml1 16:11 No procedures done that require assistance. dls 16:11 Discontinued IV lock intact, bleeding controlled, pressure dressing applied, No dls redness/swelling at site. 07/10 11:05 T-Sheet-- Draft Copy was scanned into [employer] [facility] and attached to record. gb 11: Radiology Report was scanned into [employer] [facility] and attached to record. gb Administered Medications: 07/09 12:24 Drug: morphine 4 mg Route: IVP; Site: right antecubital; jmk 12:25 Drug: NS 0.9% 1000 ml Route: IV; Rate: bolus; Site: right antecubital; jmloreto 16:09 Follow up: IV Status: Completed infusion dls 14:47 Drug: ketorolac 30 mg [ketorolac 30 mg/mL (1 mL) injection solution (1 mL)] Route: IVP; dls Site: right antecubital; Point of Care Testing: Urine : 12:17 hCG Reading: Negative; jml1 Ranges: Order Results: Lab Order: Amylase; SPEC'M 07/09/16 12:38 Test: AMYLASE; Value: 51; Range: 25-115; Units: U/L; Status: F Lab Order: Basic Metabolic Profile; SPEC'M 07/09/16 12:38 Test: GLUCOSE, FASTING; Value: 86; Range: 70-105; Units: MG/DL; Status: F Test: BLOOD UREA NITROGEN; Value: 8; Range: 7-18; Units: MG/DL; Status: F Test: CREATININE FOR GFR; Value: 0.66; Range: 0.55-1.02; Units: MG/DL; Status: F Test: GLOMERULAR FILTRATION RATE; Value: > 60.0; Range: >60; Status: F Test: SODIUM LEVEL; Value: 141; Range: 136-145; Units: MEQ/L; Status: F Test: POTASSIUM SERUM; Value: 3.7; Range: 3.5-5.1; Units: MEQ/L; Status: F Test: CHLORIDE LEVEL; Value: 107; Range: 98-107; Units: MEQ/L; Status: F Test: CARBON DIOXIDE LEVEL; Value: 27; Range: 21-32; Units: MEQ/L; Status: F Test: ANION GAP; Value: 7; Range: 8-16; Abnormal: Below low normal; Units: MEQ/L; Status: F Test: CALCIUM LEVEL; Value: 8.4; Range: 8.5-10.1; Abnormal: Below low normal; Units: MG/DL; Status: F Test Note: ; Units are mL/min/1.73 m2 Chronic Kidney Disease Staging per NKF: Stage I & II GFR >=60 Normal to Mildly Decreased Stage III GFR 30-59 Moderately Decreased Stage IV GFR 15-29 Severely Decreased Stage V GFR <15 Very Little GFR Left ESRD GFR <15 on YARDER BOSS Lab Order: CBC with Diff; SPEC'M 07/09/16 12:13 Test: WHITE BLOOD COUNT; Value: 9.0; Range: 4.0-10.0; Units: K/mm3; Status: F Test: RED BLOOD COUNT; Value: 4.82; Range: 4.00-5.40; Units: M/mm3; Status: F Test: HEMOGLOBIN; Value: 13.8; Range: 12.0-16.0; Units: g/dl; Status: F Test: HEMATOCRIT; Value: 41.2; Range: 36.0-47.0; Units: %; Status: F Test: MEAN CORPUSCULAR VOLUME; Value: 85.5; Range: 80.0-96.0; Units: fl; Status: F Test: MEAN CORPUSCULAR HEMOGLOBIN; Value: 28.6; Range: 27.0-33.0; Units: pg; Status: F Test: MEAN CORPUSCULAR HGB CONC; Value: 33.5; Range: 32.0-36.5; Units: g/dl; Status: F Test: RED CELL DISTRIBUTION WIDTH; Value: 12.2; Range: 11.5-14.5; Units: %; Status: F Test: PLATELET COUNT, AUTOMATED; Value: 366; Range: 150-450; Units: k/mm3; Status: F Test: NEUTROPHILS %; Value: 67.5; Range: 36.0-66.0; Abnormal: Above high normal; Units: %; Status: F Test: LYMPH %; Value: 24.1; Range: 24.0-44.0; Units: %; Status: F Test: MONO %; Value: 4.9; Range: 0.0-5.0; Units: %; Status: F Test: EOS %; Value: 1.8; Range: 0.0-3.0; Units: %; Status: F Test: BASO %; Value: 0.5; Range: 0.0-1.0; Units: %; Status: F Test: LARGE UNSTAINED CELL %; Value: 1.3; Range: 0.0-4.0; Units: %; Status: F Test: NEUTROPHILS #; Value: 6.1; Range: 1.8-7.7; Units: K/mm3; Status: F Test: LYMPH #; Value: 2.2; Range: 1.5-4.5; Units: K/mm3; Status: F Test: MONO #; Value: 0.4; Range: 0.0-0.8; Units: K/mm3; Status: F Test: EOS #; Value: 0.2; Range: 0.0-0.50; Units: K/mm3; Status: F Test: BASO #; Value: 0.0; Range: 0.0-0.2; Units: K/mm3; Status: F Test: LARGE UNSTAINED CELL #; Value: 0.1; Range: 0.0-0.4; Units: K/mm3; Status: F Lab Order: Lipase; [facility]' 07/09/16 12:38 Test: LIPASE; Value: 108; Range: 73-393; Units: U/L; Status: F Lab Order: Liver Profile; [facility] 07/09/16 12:38 Test: AST/SGOT; Value: 7; Range: 15-37; Abnormal: Below low normal; Units: U/L; Status: F Test: ALT/SGPT; Value: 20; Range: 12-78; Units: U/L; Status: F Test: ALKALINE PHOSPHATASE; Value: 65; Range: 45-117; Units: U/L; Status: F Test: BILIRUBIN,TOTAL; Value: 0.4; Range: 0.2-1.0; Units: MG/DL; Status: F Test: BILIRUBIN,DIRECT; Value: 0.1; Range: 0.0-0.2; Units: MG/DL; Status: F Test: TOTAL PROTEIN; Value: 7.0; Range: 6.4-8.2; Units: GM/DL; Status: F Test: ALBUMIN; Value: 3.7; Range: 3.2-5.2; Units: GM/DL; Status: F Test: ALBUMIN/GLOBULIN RATIO; Value: 1.12; Range: 1.00-1.93; Status: F Lab Order: UA; [facility] 07/09/16 12:13 Test: APPEARANCE, URINE; Value: CLEAR; Range: CLEAR; Status: F Test: COLOR, URINE; Value: STRAW; Range: YELLOW; Status: F Test: PH,URINE; Value: 7.0; Range: 5.0-9.0; Units: UNITS; Status: F Test: SPECIFIC GRAVITY URINE AUTO; Value: 1.008; Range: 1.002-1.035; Status: F Test: PROTEIN, URINE AUTO; Value: NEGATIVE; Range: NEGATIVE; Units: mg/dL; Status: F Test: GLUCOSE, URINE (UA) AUTO; Value: NEGATIVE; Range: NEGATIVE; Units: mg/dL; Status: F Test: KETONE, URINE AUTO; Value: NEGATIVE; Range: NEGATIVE; Units: mg/dL; Status: F Test: UROBILINOGEN, URINE AUTO; Value: 0.2; Range: 0.0-2.0; Units: mg/dL; Status: F Test: BILIRUBIN, URINE AUTO; Value: NEGATIVE; Range: NEGATIVE; Status: F Test: NITRITE, URINE AUTO; Value: NEGATIVE; Range: NEGATIVE; Status: F Test: LEUKOCYTE ESTERASE, URINE AUTO; Value: NEGATIVE; Range: NEGATIVE; Status: F Test: BLOOD, URINE BLOOD; Value: NEGATIVE; Range: NEGATIVE; Status: F Test: WBC, URINE AUTO; Value: 1; Range: 0-3; Units: /HPF; Status: F Test: RBC, URINE AUTO; Value: 1; Range: 0-3; Units: /HPF; Status: F Test: BACTERIA, URINE AUTO; Value: NEGATIVE; Range: NEGATIVE; Status: F Test: SQUAMOUS EPITHELIAL CELL UR AU; Value: 2; Range: 0-6; Units: /HPF; Status: F Test: HYALINE CAST, URINE AUTO; Value: 0; Range: 0-1; Units: /LPF; Status: F Radiology Order: CT ABD & PELVIS: IV Contrast Only Test: CT ABD & PELVIS: IV Contrast Only REASON FOR EXAMINATION: Appendicitis; CT abdomen and pelvis with IV but without oral contrast:; ; History: Appendicitis.; ; CT contrast dose: 100 mL of Isovue 370 is administered intravenously. No; comparison CT study.; ; Findings: Digital gastrointestinal technician radiograph shows an unremarkable gas pattern. The lung; bases are clear.; ; The liver and the spleen are normal in size and homogeneous in texture. No; adrenal lesion is seen. The pancreas and the gallbladder are unremarkable. The; kidneys enhance symmetrically and are morphologically intact. No retroperitoneal; mass or adenopathy is seen. A normal appearing appendix is seen in the central; pelvis. There is no CT evidence of appendicitis. No uterine or ovarian; abnormality is seen on either side. No pelvic mass or adenopathy is seen. No; free fluid is noted. Urinary bladder is unremarkable. No abdominal wall defect; is seen. No bony destructive lesion is appreciated.; ; Impression:; ; No CT evidence of appendicitis. Negative CT study abdomen and pelvis with IV; contrast.; ; ; Signed by; Parth Bond MD 07/09/2016 02:50 P; Radiology Order: -US Pelvic Non-Ob Complete Test: -US Pelvic Non-Ob Complete REASON FOR EXAMINATION: right;Adnexal Pain r/o Torsion; PELVIC ULTRASOUND:; ; Real-time sonographic evaluation of the pelvis is performed utilizing; transabdominal and endovaginal technique. The urinary bladder measures 9.9 x 5.2; x 7.7 cm. Uterus measures 7.6 x 3.9 x 5.3 cm. Endometrial thickness is 3 mm.; Junctional zone is not well defined and there is acoustic shadowing limiting; evaluation of the endometrium. Findings suggest adenomyosis. Ovaries are normal; in size and echotexture, right ovary measuring 3.6 x 1.9 x 2.7 cm and left ovary; 4.0 x 2.5 x 3.0 cm. There is no adnexal mass or free fluid. No torsion is seen,; with blood flow seen in each ovary with duplex Doppler evaluation.; ; IMPRESSION:; ; Findings suggesting adenomyosis of the uterus. Endometrial thickness; approximately 3 mm. No adnexal mass, free fluid or torsion.; ; ; Signed by; Maurizio Salazar MD 07/09/2016 05:05 P; Radiology Order: DUPLEX SCAN LIMITED (DOPPLER)+US Test: DUPLEX SCAN LIMITED (DOPPLER)+US REASON FOR EXAMINATION: Adnexal Pain r/o Torsion; PELVIC ULTRASOUND:; ; Real-time sonographic evaluation of the pelvis is performed utilizing; transabdominal and endovaginal technique. The urinary bladder measures 9.9 x 5.2; x 7.7 cm. Uterus measures 7.6 x 3.9 x 5.3 cm. Endometrial thickness is 3 mm.; Junctional zone is not well defined and there is acoustic shadowing limiting; evaluation of the endometrium. Findings suggest adenomyosis. Ovaries are normal; in size and echotexture, right ovary measuring 3.6 x 1.9 x 2.7 cm and left ovary; 4.0 x 2.5 x 3.0 cm. There is no adnexal mass or free fluid. No torsion is seen,; with blood flow seen in each ovary with duplex Doppler evaluation.; ; IMPRESSION:; ; Findings suggesting adenomyosis of the uterus. Endometrial thickness; approximately 3 mm. No adnexal mass, free fluid or torsion.; ; ; Signed by; Maurizio Salazar MD 07/09/2016 05:05 P; Radiology Order: Transvaginal NON- US Test: Transvaginal NON- US REASON FOR EXAMINATION: EVALUATE UTERUS AND OVARIES; PELVIC ULTRASOUND:; ; Real-time sonographic evaluation of the pelvis is performed utilizing; transabdominal and endovaginal technique. The urinary bladder measures 9.9 x 5.2; x 7.7 cm. Uterus measures 7.6 x 3.9 x 5.3 cm. Endometrial thickness is 3 mm.; Junctional zone is not well defined and there is acoustic shadowing limiting; evaluation of the endometrium. Findings suggest adenomyosis. Ovaries are normal; in size and echotexture, right ovary measuring 3.6 x 1.9 x 2.7 cm and left ovary; 4.0 x 2.5 x 3.0 cm. There is no adnexal mass or free fluid. No torsion is seen,; with blood flow seen in each ovary with duplex Doppler evaluation.; ; IMPRESSION:; ; Findings suggesting adenomyosis of the uterus. Endometrial thickness; approximately 3 mm. No adnexal mass, free fluid or torsion.; ; ; Signed by; Maurizio Salazar MD 07/09/2016 05:05 P; Outcome: 15:41 Discharge ordered by Provider. ar2 16:11 Discharge Assessment: Patient awake, alert and oriented x 3. No cognitive and/or dls functional deficits noted. Patient verbalized understanding of disposition instructions. patient administered narcotics - no. The following High Risk Discharge criteria are identified: None. Discharged to home ambulatory, with significant other. Condition: stable Condition: improved. Discharge instructions given to patient, Instructed on discharge instructions, follow up and referral plans. medication usage, Demonstrated understanding of instructions, medications, Pt was receptive of discharge instructions/ teaching. Prescriptions given X 1. CT Study completed. Property sent home with patient. 16:13 Patient left the ED. dls Signatures: Dispatcher [facility] EDMD Ky Sears,RN RN Mindy Alvarez, RN RN dls Aydin, Therese, Reg Reg gb Carola Pineda, Reg Reg lg Tania Justice eg2 Rizwan Canales, LISSET PAMonica ar2 Bassam Watkins, FLIGHT TEST ENGINEER FLIGHT TEST ENGINEER dd6 Cammy Ortez RN RN hs1 Candido Marques jml1 Thania Perez RN RN [id number] Chart Complete MTDD
== END 2016-07-09 16:13 | disposition home or self-care (01) ==
LOC: M ED 11:37
DX: N80.0 Endometriosis of uterus (principal); Z88.2 Allergy status to sulfonamides
CPT/HCPCS: 74177; 76830; 76856; 80048; 80076; 81001; 81025; 82150; 83690; 85025; 93976; 96361; 96374; 96375; 99284; J1885; Q9967

== ENCOUNTER 2016-07-16 13:51 | Emergency (ER) | payer BC ==
[2016-07-16 16:58] LABS: BASO # 0.2 K/mm3 (0.0-0.2); BASO % 1.8 % (0.0-1.0); CONTROL LINE UCG INT CTR LINE PRESENT; EOS # 0.2 K/mm3 (0.0-0.50); LARGE UNSTAINED CELL # 0.2 K/mm3 (0.0-0.4); LARGE UNSTAINED CELL % 1.8 % (0.0-4.0); LYMPH % 25.8 % (24.0-44.0); MEAN CORPUSCULAR HEMOGLOBIN 28.3 pg (27.0-33.0); MEAN CORPUSCULAR HGB CONC 33.1 g/dl (32.0-36.5); MEAN CORPUSCULAR VOLUME 85.4 fl (80.0-96.0); MONO # 0.6 K/mm3 (0.0-0.8); MONO % 5.3 % (0.0-5.0); NEUTROPHILS # 6.9 K/mm3 (1.8-7.7); NEUTROPHILS % 63.4 % (36.0-66.0); PLATELET COUNT, AUTOMATED 325 k/mm3 (150-450); RED CELL DISTRIBUTION WIDTH 13.2 % (11.5-14.5); WHITE BLOOD COUNT 10.8 K/mm3 (4.0-10.0)
[2016-07-16 17:11] LABS: ANION GAP 9 MEQ/L (8-16); BLOOD UREA NITROGEN 5 MG/DL (7-18); CARBON DIOXIDE LEVEL 27 MEQ/L (21-32); CHLORIDE LEVEL 106 MEQ/L (98-107); CREATININE FOR GFR 0.62 MG/DL (0.55-1.02); GLOMERULAR FILTRATION RATE > 60.0 (>60); GLUCOSE, FASTING 93 MG/DL (70-105); POTASSIUM SERUM 4.6 MEQ/L (3.5-5.1); SODIUM LEVEL 142 MEQ/L (136-145)
--- NOTE | 2016-07-16 18:25 | REP ---
Pelvic and endovaginal probe ultrasound, 07/16/2016. Clinical history. Right lower quadrant pain. Comparison: CT abdomen pelvis and pelvic ultrasound 07/09/2016. Sonographic evaluation of the pelvis performed. Bladder has very low fluid volume and endovaginal probe followed. There is a retroverted uterus measuring about 7.1 x 4.5 x 6.3 cm. Endometrial stripe is centrally located and has a thickness of 2.1 mm. Again, the junctional zone is not well defined, but image quality in the retroverted uterus is not optimal. Whether this is image artifact or sign of adenomyosis of the uterus is uncertain. However, there is no definite uterine mass or contour abnormality and no free fluid in the cul-de-sac. The right ovary is 2.4 x 1.3 x 0.9 cm and the left ovary 3.4 x 1.9 x 1.8 cm. Both ovaries show Doppler tracings with resistive index of 0.49 on the right and 0.48 on the left. There is a dominant follicle of 2 cm on the left side (cyst defined at 2.5 cm). Medial to the right ovary is a linear cystic structure that is likely a hydrosalpinx. There is no flow seen within it. Trace amount of fluid is seen in the endometrial cavity in the body and lower uterine segment. Impression: 1. The bilateral ovaries are fairly symmetric in size and show normal blood flow, no torsion. Dominant follicle on the left at 2 cm. The right adnexal region shows a linear tubular structure without flow within it, most likely hydrosalpinx. 2. Retroverted uterus with small amount of fluid in the endometrial cavity in the body and lower uterine segment, with the endometrial stripe up to 2.1 mm. Otherwise no uterine mass or contour abnormality. Signed by Rangel Roque MD 07/16/2016 07:41 P
--- NOTE | 2016-07-16 18:47 | EDDOCDS ---
Nurse's Notes [facility] Name: Hailee Bond Age: 35 yrs Sex: Female : 1980 Arrival Date: 07/16/2016 Time: 13:51 Bed I4 / M4 Private MD: Markus Finley W Diagnosis: Female pelvic inflammatory disease, unspecified Presentation: 07/16 14:02 Presenting complaint: Patient states: that she was seen here approx 1 week ago for ms18 pelvic pain. Pt states that she was seen by Dr. Finley and her EXCEL EXPERT for the same problem. Pt states that the pain has gotten worse and she has been cramping. Adult Sepsis Screening: The patient does not have new or worsening altered mentation. Patient's respiratory rate is less than 22. Systolic blood pressure is greater than 100. Patient has a qSOFA score of 0- Negative Sepsis Screen. Suicide/Homicide risk assessment- the patient denies having any suicidal and/or homicidal ideations and does not present with any other emotional, behavioral or mental health complaints. Status: Patient is not a biomedical field service engineer or dependent. Transition of care: patient was not received from another setting of care. 14:02 Acuity: AMAYA Level 3 ms18 14:02 Method Of Arrival: Walkin/Carried/Asstd ms18 Triage Assessment: 14:08 General: Appears in no apparent distress, comfortable, Behavior is appropriate for age, ms18 cooperative. Pain: Location: pelvis Pain currently is 7 out of 10 on a pain scale. HIV screening NA for this visit Offered previously. Neurological: Level of Consciousness is awake, alert, obeys commands, Oriented to person, place, time. Respiratory: No deficits noted. : Denies vaginal bleeding. Derm: Skin is pink, warm & dry. EXCEL EXPERT: 14:08 LMP N/A - Uterine ablation ms18 Historical: - Allergies: SULFA (SULFONAMIDES); - Home Meds: 1. doxycycline hyclate 100 mg Oral cap 1 cap every 12 hours for 14 days - PMHx: none; - PSHx: D & C; Bladder suspension; Uterine Ablation; Tubal ligation; - Social history: Smoking status: Patient states was never smoker of tobacco. No barriers to communication noted, The patient speaks fluent Georgian. - Family history: Not pertinent. - : The pt / caregiver states he / she is not on anticoagulants. Home medication list is obtained from the patient. - Exposure Risk Screening:: None identified. Screenin:46 Screening information is obtained from the patient. Fall risk: No risks identified. kr3 Assistance ADL's: requires no assistance with activities of daily living. Abuse/DV Screen: The patient / caregiver reports he/she is: not in a situation that causes fear, pain or injury. Nutritional screening: No deficits noted. Advance Directives: Currently, there is no health care proxy. home support is adequate. Assessment: 16:46 Reassessment: Patient appears in no apparent distress at this time. Neurological: Level kr3 of Consciousness is awake, alert. Respiratory: Respiratory effort is even, unlabored. : Denies discharge, vaginal bleeding. 17:40 Reassessment: Patient appears in no apparent distress at this time. Neurological: No kr3 deficits noted. Respiratory: Respiratory effort is even, unlabored. 18:46 Reassessment: Patient appears in no apparent distress at this time. kr3 Vital Signs: 13:52 BP 138 / 74; Pulse 64; Resp 18 S; Temp 97.5(O); Pulse Ox 98% on R/A; Weight 82.55 kg dd6 (R); Height 5 ft. 4 in. (162.56 cm) (R); 18:37 BP 136 / 63; Pulse 74; Resp 18; Temp 97.5; Pulse Ox 98% ; Pain 5/10; jam1 13:52 Body Mass Index 31.24 (82.55 kg, 162.56 cm) dd6 Vitals: 13:52 Log In Time: July 16, 2016 at 13:50. dd6 ED Course: 13:52 Patient visited by Bassam Watkins PCA. dd6 13:52 Markus Finley is Private Physician. dd6 13:52 Patient moved to Waiting dd6 13:53 Patient moved to Pre RCE dd6 14:06 Triage Initiated ms18 14:39 Patient moved to Triage 1 ar3 15:54 Terence Hung PA is PHCP. mo1 15:54 Artis Gonsalez MD is Attending Physician. mo1 16:23 Patient moved to I4 / M4 kcs 16:26 Artis Gonsalez MD is Attending Physician. mo1 16:26 Cory Cuellar PA-C is PHCP. mo1 16:37 Patient visited by Cory Cuellar PA-C. jk8 16:46 The patient / caregiver is instructed regarding the plan of care and ED course. kr3 Accompanied by Family Member, Patient has correct armband on for positive identification. Placed in gown. Bed in low position. Call light in reach. Side rails up X 1. 16:46 UA Sent. khadra 16:46 UCG- In Lab Sent. khadra 16:46 BMP Sent. chenk 16:46 CBC with Diff Sent. chenk 16:47 Assist provider with pelvic exam: Set up pelvic tray. Performed by Cory Cuellar PA-C kr3 Patient tolerated well. 16:48 Patient moved to Ultrasound am17 16:52 Wet Prep Sent. jam1 16:52 GC & Chlamydia Amplification Sent. jam1 17:02 Patient moved to I4 / M4 kr3 18:31 -US Pelvic Non-Ob Complete Returned. EDMS 18:31 Transvaginal NON- US Returned. EDMS 18:31 DUPLEX SCAN LIMITED (DOPPLER) Returned. EDMS 18:45 No IV's were initiated during this patient's visit. kr3 Order Results: Lab Order: CBC with Diff; SPEC'M 07/16/16 16:43 Test: WHITE BLOOD COUNT; Value: 10.8; Range: 4.0-10.0; Abnormal: Above high normal; Units: K/mm3; Status: F Test: RED BLOOD COUNT; Value: 4.58; Range: 4.00-5.40; Units: M/mm3; Status: F Test: HEMOGLOBIN; Value: 13.0; Range: 12.0-16.0; Units: g/dl; Status: F Test: HEMATOCRIT; Value: 39.1; Range: 36.0-47.0; Units: %; Status: F Test: MEAN CORPUSCULAR VOLUME; Value: 85.4; Range: 80.0-96.0; Units: fl; Status: F Test: MEAN CORPUSCULAR HEMOGLOBIN; Value: 28.3; Range: 27.0-33.0; Units: pg; Status: F Test: MEAN CORPUSCULAR HGB CONC; Value: 33.1; Range: 32.0-36.5; Units: g/dl; Status: F Test: RED CELL DISTRIBUTION WIDTH; Value: 13.2; Range: 11.5-14.5; Units: %; Status: F Test: PLATELET COUNT, AUTOMATED; Value: 325; Range: 150-450; Units: k/mm3; Status: F Test: NEUTROPHILS %; Value: 63.4; Range: 36.0-66.0; Units: %; Status: F Test: LYMPH %; Value: 25.8; Range: 24.0-44.0; Units: %; Status: F Test: MONO %; Value: 5.3; Range: 0.0-5.0; Abnormal: Above high normal; Units: %; Status: F Test: EOS %; Value: 2.0; Range: 0.0-3.0; Units: %; Status: F Test: BASO %; Value: 1.8; Range: 0.0-1.0; Abnormal: Above high normal; Units: %; Status: F Test: LARGE UNSTAINED CELL %; Value: 1.8; Range: 0.0-4.0; Units: %; Status: F Test: NEUTROPHILS #; Value: 6.9; Range: 1.8-7.7; Units: K/mm3; Status: F Test: LYMPH #; Value: 3.0; Range: 1.5-4.5; Units: K/mm3; Status: F Test: MONO #; Value: 0.6; Range: 0.0-0.8; Units: K/mm3; Status: F Test: EOS #; Value: 0.2; Range: 0.0-0.50; Units: K/mm3; Status: F Test: BASO #; Value: 0.2; Range: 0.0-0.2; Units: K/mm3; Status: F Test: LARGE UNSTAINED CELL #; Value: 0.2; Range: 0.0-0.4; Units: K/mm3; Status: F Lab Order: [facility]; SPEC'M 07/16/16 16:43 Test: GLUCOSE, FASTING; Value: 93; Range: 70-105; Units: MG/DL; Status: F Test: BLOOD UREA NITROGEN; Value: 5; Range: 7-18; Abnormal: Below low normal; Units: MG/DL; Status: F Test: CREATININE FOR GFR; Value: 0.62; Range: 0.55-1.02; Units: MG/DL; Status: F Test: GLOMERULAR FILTRATION RATE; Value: > 60.0; Range: >60; Status: F Test: SODIUM LEVEL; Value: 142; Range: 136-145; Units: MEQ/L; Status: F Test: POTASSIUM SERUM; Value: 4.6; Range: 3.5-5.1; Units: MEQ/L; Status: F Test: CHLORIDE LEVEL; Value: 106; Range: 98-107; Units: MEQ/L; Status: F Test: CARBON DIOXIDE LEVEL; Value: 27; Range: 21-32; Units: MEQ/L; Status: F Test: ANION GAP; Value: 9; Range: 8-16; Units: MEQ/L; Status: F Test: CALCIUM LEVEL; Value: 9.0; Range: 8.5-10.1; Units: MG/DL; Status: F Test Note: ; Units are mL/min/1.73 m2 Chronic Kidney Disease Staging per NKF: Stage I & II GFR >=60 Normal to Mildly Decreased Stage III GFR 30-59 Moderately Decreased Stage IV GFR 15-29 Severely Decreased Stage V GFR <15 Very Little GFR Left ESRD GFR <15 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 Lab Order: UCG- In Lab; SPEC'M 07/16/16 16:43 Test: URINE PREG TEST; Value: NEGATIVE; Range: NEGATIVE; Status: F Lab Order: UA; SPEC'M 07/16/16 16:43 Test: APPEARANCE, URINE; Value: CLEAR; Range: CLEAR; Status: F Test: COLOR, URINE; Value: STRAW; Range: YELLOW; Status: F Test: PH,URINE; Value: 7.0; Range: 5.0-9.0; Units: UNITS; Status: F Test: SPECIFIC GRAVITY URINE AUTO; Value: 1.009; Range: 1.002-1.035; Status: F Test: PROTEIN, URINE AUTO; Value: NEGATIVE; Range: NEGATIVE; Units: mg/dL; Status: F Test: GLUCOSE, URINE (UA) AUTO; Value: NEGATIVE; Range: NEGATIVE; Units: mg/dL; Status: F Test: KETONE, URINE AUTO; Value: NEGATIVE; Range: NEGATIVE; Units: mg/dL; Status: F Test: UROBILINOGEN, URINE AUTO; Value: 0.2; Range: 0.0-2.0; Units: mg/dL; Status: F Test: BILIRUBIN, URINE AUTO; Value: NEGATIVE; Range: NEGATIVE; Status: F Test: NITRITE, URINE AUTO; Value: NEGATIVE; Range: NEGATIVE; Status: F Test: LEUKOCYTE ESTERASE, URINE AUTO; Value: NEGATIVE; Range: NEGATIVE; Status: F Test: BLOOD, URINE BLOOD; Value: NEGATIVE; Range: NEGATIVE; Status: F Test: WBC, URINE AUTO; Value: 0; Range: 0-3; Units: /HPF; Status: F Test: RBC, URINE AUTO; Value: 4; Range: 0-3; Abnormal: Above high normal; Units: /HPF; Status: F Test: BACTERIA, URINE AUTO; Value: NEGATIVE; Range: NEGATIVE; Status: F Test: SQUAMOUS EPITHELIAL CELL UR AU; Value: 1; Range: 0-6; Units: /HPF; Status: F Test: MUCUS, URINE; Value: SMALL; Range: NEGATIVE; Status: F Test: HYALINE CAST, URINE AUTO; Value: 0; Range: 0-1; Units: /LPF; Status: F Lab Order: Wet Prep; SPEC'M 07/16/16 16:43 Test: WET PREP; Value: WET PREP RESULT; Status: F Test: WET PREP; Value: MANY EPITHELIAL CELLS PRESENT; Status: F Test: WET PREP; Value: FEW WBC; Status: F Test: WET PREP; Value: FEW SHORT RODS PRESENT; Status: F Test: WET PREP; Value: FEW LONG RODS PRESENT; Status: F Radiology Order: -US Pelvic Non-Ob Complete Test: -US Pelvic Non-Ob Complete REASON FOR EXAMINATION: Adnexal Pain r/o Torsion; Pelvic and endovaginal probe ultrasound, 07/16/2016.; ; Clinical history. Right lower quadrant pain.; ; Comparison: CT abdomen pelvis and pelvic ultrasound 07/09/2016.; ; Sonographic evaluation of the pelvis performed. Bladder has very low fluid; volume and endovaginal probe followed. There is a retroverted uterus measuring; about 7.1 x 4.5 x 6.3 cm. Endometrial stripe is centrally located and has a; thickness of 2.1 mm. Again, the junctional zone is not well defined, but image; quality in the retroverted uterus is not optimal. Whether this is image artifact; or sign of adenomyosis of the uterus is uncertain. However, there is no definite; uterine mass or contour abnormality and no free fluid in the cul-de-sac. The; right ovary is 2.4 x 1.3 x 0.9 cm and the left ovary 3.4 x 1.9 x 1.8 cm. Both; ovaries show Doppler tracings with resistive index of 0.49 on the right and 0.48; on the left. There is a dominant follicle of 2 cm on the left side (cyst defined; at 2.5 cm). Medial to the right ovary is a linear cystic structure that is; likely a hydrosalpinx. There is no flow seen within it. Trace amount of fluid; is seen in the endometrial cavity in the body and lower uterine segment.; ; Impression:; 1. The bilateral ovaries are fairly symmetric in size and show normal blood; flow, no torsion. Dominant follicle on the left at 2 cm. The right adnexal; region shows a linear tubular structure without flow within it, most likely; hydrosalpinx.; 2. Retroverted uterus with small amount of fluid in the endometrial cavity in; the body and lower uterine segment, with the endometrial stripe up to 2.1 mm.; Otherwise no uterine mass or contour abnormality.; ; ; ; ; Unreviewed; Radiology Order: Transvaginal NON- US Test: Transvaginal NON- US REASON FOR EXAMINATION: EVAL OVARIES; Pelvic and endovaginal probe ultrasound, 07/16/2016.; ; Clinical history. Right lower quadrant pain.; ; Comparison: CT abdomen pelvis and pelvic ultrasound 07/09/2016.; ; Sonographic evaluation of the pelvis performed. Bladder has very low fluid; volume and endovaginal probe followed. There is a retroverted uterus measuring; about 7.1 x 4.5 x 6.3 cm. Endometrial stripe is centrally located and has a; thickness of 2.1 mm. Again, the junctional zone is not well defined, but image; quality in the retroverted uterus is not optimal. Whether this is image artifact; or sign of adenomyosis of the uterus is uncertain. However, there is no definite; uterine mass or contour abnormality and no free fluid in the cul-de-sac. The; right ovary is 2.4 x 1.3 x 0.9 cm and the left ovary 3.4 x 1.9 x 1.8 cm. Both; ovaries show Doppler tracings with resistive index of 0.49 on the right and 0.48; on the left. There is a dominant follicle of 2 cm on the left side (cyst defined; at 2.5 cm). Medial to the right ovary is a linear cystic structure that is; likely a hydrosalpinx. There is no flow seen within it. Trace amount of fluid; is seen in the endometrial cavity in the body and lower uterine segment.; ; Impression:; 1. The bilateral ovaries are fairly symmetric in size and show normal blood; flow, no torsion. Dominant follicle on the left at 2 cm. The right adnexal; region shows a linear tubular structure without flow within it, most likely; hydrosalpinx.; 2. Retroverted uterus with small amount of fluid in the endometrial cavity in; the body and lower uterine segment, with the endometrial stripe up to 2.1 mm.; Otherwise no uterine mass or contour abnormality.; ; ; ; ; Unreviewed; Radiology Order: DUPLEX SCAN LIMITED (DOPPLER) Test: DUPLEX SCAN LIMITED (DOPPLER) REASON FOR EXAMINATION: R/O TORSION; Pelvic and endovaginal probe ultrasound, 07/16/2016.; ; Clinical history. Right lower quadrant pain.; ; Comparison: CT abdomen pelvis and pelvic ultrasound 07/09/2016.; ; Sonographic evaluation of the pelvis performed. Bladder has very low fluid; volume and endovaginal probe followed. There is a retroverted uterus measuring; about 7.1 x 4.5 x 6.3 cm. Endometrial stripe is centrally located and has a; thickness of 2.1 mm. Again, the junctional zone is not well defined, but image; quality in the retroverted uterus is not optimal. Whether this is image artifact; or sign of adenomyosis of the uterus is uncertain. However, there is no definite; uterine mass or contour abnormality and no free fluid in the cul-de-sac. The; right ovary is 2.4 x 1.3 x 0.9 cm and the left ovary 3.4 x 1.9 x 1.8 cm. Both; ovaries show Doppler tracings with resistive index of 0.49 on the right and 0.48; on the left. There is a dominant follicle of 2 cm on the left side (cyst defined; at 2.5 cm). Medial to the right ovary is a linear cystic structure that is; likely a hydrosalpinx. There is no flow seen within it. Trace amount of fluid; is seen in the endometrial cavity in the body and lower uterine segment.; ; Impression:; 1. The bilateral ovaries are fairly symmetric in size and show normal blood; flow, no torsion. Dominant follicle on the left at 2 cm. The right adnexal; region shows a linear tubular structure without flow within it, most likely; hydrosalpinx.; 2. Retroverted uterus with small amount of fluid in the endometrial cavity in; the body and lower uterine segment, with the endometrial stripe up to 2.1 mm.; Otherwise no uterine mass or contour abnormality.; ; ; ; ; Unreviewed; Outcome: 18:34 Discharge ordered by Provider. jk8 18:45 Discharge Assessment: patient administered narcotics - no. The following High Risk kr3 Discharge criteria are identified: None. Discharged to home ambulatory. Condition: stable. Discharge instructions given to patient, Instructed on discharge instructions, follow up and referral plans. medication usage, Demonstrated understanding of instructions, medications, Pt was receptive of discharge instructions/ teaching. Prescriptions given X 3. Ultrasound Study completed. Property sent home with patient. 18:46 Patient left the ED. kr3 Signatures: Dispatcher [employer] EDMS Tanna Betancourt, RN RN Ky Jeong RN RN Joyce López, LEAD SPRINKLER LEAD SPRINKLER jam1 Denise Dooley RN RN kr3 Bassam Watkins, LEAD SPRINKLER LEAD SPRINKLER dd6 Kim Logan, LEAD SPRINKLER LEAD SPRINKLER ar3 Terence Hung PA PA mo1 Anita Adrian am17 Rianna Joseph,SILVIO RN ms18 Cory Cuellar PA-C PA-C jk8 MTDD
--- NOTE | 2016-07-16 18:47 | EDDOCDS ---
Physician Documentation [facility] Name: Hailee Bond Age: 35 yrs Sex: Female : 1980 Arrival Date: 07/16/2016 Time: 13:51 Bed I4 / M4 Private MD: Markus Finley W Disposition: 07/16/16 18:34 Discharged to Home/Self Care. Impression: Female pelvic inflammatory disease, unspecified. - Condition is Stable. - Prescriptions for naproxen 500 mg Oral tablet - take 1 tablet by ORAL route every 12 hours; 28 tablet. Nexium 20 mg Oral Capsule - take 1 capsule by ORAL route once daily; 20 capsule. Tylenol 325 mg Oral Tablet - take 2 tablet by ORAL route every 6 hours as needed; 1 bottle. - Medication Reconciliation, Local Pharmacy Hours form. - Follow up: Private Physician; When: 1 - 2 days; Reason: Recheck today's complaints. Follow up: Emergency Department; When: As soon as possible; Reason: Fever > 102F, Worsening of conditions. - Problem is an ongoing problem. - Symptoms are unchanged. Historical: - Allergies: SULFA (SULFONAMIDES); - Home Meds: 1. doxycycline hyclate 100 mg Oral cap 1 cap every 12 hours for 14 days - PMHx: none; - PSHx: D & C; Bladder suspension; Uterine Ablation; Tubal ligation; - Social history: Smoking status: Patient states was never smoker of tobacco. No barriers to communication noted, The patient speaks fluent Kiswahili. - Family history: Not pertinent. - : The pt / caregiver states he / she is not on anticoagulants. Home medication list is obtained from the patient. - Exposure Risk Screening:: None identified. 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 4 in. (162.56 cm) (R); 18:37 BP 136 / 63; Pulse 74; Resp 18; Temp 97.5; Pulse Ox 98% ; Pain 5/10; jam1 13:52 Body Mass Index 31.24 (82.55 kg, 162.56 cm) dd6 MDM: 16:40 Set up pelvic ordered. jk8 16:40 CBC with Diff Ordered. EDMS 16:40 BMP Ordered. EDMS 16:40 UCG- In Lab Ordered. EDMS 16:40 UA Ordered. EDMS 16:40 GC & Chlamydia Amplification Ordered. EDMS 16:40 Wet Prep Ordered. EDMS 16:42 -US Pelvic Non-Ob Complete Ordered. EDMS 16:52 Ca 125 Ordered. EDMS 17:11 CBC with Diff Reviewed. jk8 17:11 UA Reviewed. jk8 17:11 UCG- In Lab Reviewed. jk8 17:11 Wet Prep Reviewed. jk8 17:11 Transvaginal NON- US Ordered. EDMS 17:12 DUPLEX SCAN LIMITED (DOPPLER) Ordered. EDMS 17:13 BMP Reviewed. jk8 18:36 -US Pelvic Non-Ob Complete Reviewed. jk8 18:36 Transvaginal NON- US Reviewed. jk8 18:36 DUPLEX SCAN LIMITED (DOPPLER) Reviewed. jk8 Signatures: Dispatcher [employer] Denise Lopez,RN RN kr3 Rianna Joseph,RN RN ms18 Cory Cuellar, LISSET DARLING jk8 MTDD
--- NOTE | 2016-07-18 19:47 | EDDOCDS ---
Nurse's Notes [facility] Name: Hailee Bond Age: 35 yrs Sex: Female : 1980 Arrival Date: 07/16/2016 Time: 13:51 Bed I4 / M4 Private MD: Markus Finley W Diagnosis: Female pelvic inflammatory disease, unspecified Presentation: 07/16 14:02 Presenting complaint: Patient states: that she was seen here approx 1 week ago for ms18 pelvic pain. Pt states that she was seen by Dr. Finley and her COUNTER CLERK TRACTOR [employer]S for the same problem. Pt states that the pain has gotten worse and she has been cramping. Adult Sepsis Screening: The patient does not have new or worsening altered mentation. Patient's respiratory rate is less than 22. Systolic blood pressure is greater than 100. Patient has a qSOFA score of 0- Negative Sepsis Screen. Suicide/Homicide risk assessment- the patient denies having any suicidal and/or homicidal ideations and does not present with any other emotional, behavioral or mental health complaints. 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 Transition of care: patient was not received from another setting of care. 14:02 Acuity: AMAYA Level 3 ms18 14:02 Method Of Arrival: Walkin/Carried/Asstd ms18 Triage Assessment: 14:08 General: Appears in no apparent distress, comfortable, Behavior is appropriate for age, ms18 cooperative. Pain: Location: pelvis Pain currently is 7 out of 10 on a pain scale. HIV screening NA for this visit Offered previously. Neurological: Level of Consciousness is awake, alert, obeys commands, Oriented to person, place, time. Respiratory: No deficits noted. : Denies vaginal bleeding. Derm: Skin is pink, warm & dry. COUNTER CLERK TRACTOR [employer]S: 14:08 LMP N/A - Uterine ablation ms18 Historical: - Allergies: SULFA (SULFONAMIDES); - Home Meds: 1. doxycycline hyclate 100 mg Oral cap 1 cap every 12 hours for 14 days - PMHx: none; - PSHx: D & C; Bladder suspension; Uterine Ablation; Tubal ligation; - Social history: Smoking status: Patient states was never smoker of tobacco. No barriers to communication noted, The patient speaks fluent French. - Family history: Not pertinent. - : The pt / caregiver states he / she is not on anticoagulants. Home medication list is obtained from the patient. - Exposure Risk Screening:: None identified. Screenin:46 Screening information is obtained from the patient. Fall risk: No risks identified. kr3 Assistance ADL's: requires no assistance with activities of daily living. Abuse/DV Screen: The patient / caregiver reports he/she is: not in a situation that causes fear, pain or injury. Nutritional screening: No deficits noted. Advance Directives: Currently, there is no health care proxy. home support is adequate. Assessment: 16:46 Reassessment: Patient appears in no apparent distress at this time. Neurological: Level kr3 of Consciousness is awake, alert. Respiratory: Respiratory effort is even, unlabored. : Denies discharge, vaginal bleeding. 17:40 Reassessment: Patient appears in no apparent distress at this time. Neurological: No kr3 deficits noted. Respiratory: Respiratory effort is even, unlabored. 18:46 Reassessment: Patient appears in no apparent distress at this time. kr3 Vital Signs: 13:52 BP 138 / 74; Pulse 64; Resp 18 S; Temp 97.5(O); Pulse Ox 98% on R/A; Weight 82.55 kg dd6 (R); Height 5 ft. 4 in. (162.56 cm) (R); 18:37 BP 136 / 63; Pulse 74; Resp 18; Temp 97.5; Pulse Ox 98% ; Pain 5/10; jam1 13:52 Body Mass Index 31.24 (82.55 kg, 162.56 cm) dd6 Vitals: 13:52 Log In Time: July 16, 2016 at 13:50. dd6 ED Course: 13:52 Patient visited by Bassam Watkins PCA. dd6 13:52 Markus Finley is Private Physician. dd6 13:52 Patient moved to Waiting dd6 13:53 Patient moved to Pre RCE dd6 14:06 Triage Initiated ms18 14:39 Patient moved to Triage 1 ar3 15:54 Terence Hung PA is PHCP. mo1 15:54 Artis Gonsalez MD is Attending Physician. mo1 16:23 Patient moved to I4 / M4 kcs 16:26 Artis Gonsalez MD is Attending Physician. mo1 16:26 Cory Cuellar PA-C is PHCP. mo1 16:37 Patient visited by Cory Cuellar PA-C. jk8 16:46 The patient / caregiver is instructed regarding the plan of care and ED course. kr3 Accompanied by Family Member, Patient has correct armband on for positive identification. Placed in gown. Bed in low position. Call light in reach. Side rails up X 1. 16:46 UA Sent. khadra 16:46 UCG- In Lab Sent. chenk 16:46 BMP Sent. chenk 16:46 CBC with Diff Sent. jmk 16:47 Assist provider with pelvic exam: Set up pelvic tray. Performed by Cory Cuellar PA-C kr3 Patient tolerated well. 16:48 Patient moved to Ultrasound am17 16:52 Wet Prep Sent. jam1 16:52 GC & Chlamydia Amplification Sent. jam1 17:02 Patient moved to I4 / M4 kr3 18:31 -US Pelvic Non-Ob Complete Returned. EDMS 18:31 Transvaginal NON- US Returned. EDMS 18:31 DUPLEX SCAN LIMITED (DOPPLER) Returned. EDMS 18:45 No IV's were initiated during this patient's visit. kr3 18:48 [facility] Payment Agreement was scanned into Fileblaze and attached to record. gjb 19:54 Patient name changed from Hailee\S\\S\Bond\S\ to Hailee\S\ \S\Bond. EDMS 20:04 -US Pelvic Non-Ob Complete Returned. EDMS 20:04 Transvaginal NON- US Returned. EDMS 20:04 DUPLEX SCAN LIMITED (DOPPLER) Returned. EDMS 21:50 T-Sheet-- Draft Copy was scanned into Fileblaze and attached to record. klr Order Results: Lab Order: CBC with Diff; SPEC'M 07/16/16 16:43 Test: WHITE BLOOD COUNT; Value: 10.8; Range: 4.0-10.0; Abnormal: Above high normal; Units: K/mm3; Status: F Test: RED BLOOD COUNT; Value: 4.58; Range: 4.00-5.40; Units: M/mm3; Status: F Test: HEMOGLOBIN; Value: 13.0; Range: 12.0-16.0; Units: g/dl; Status: F Test: HEMATOCRIT; Value: 39.1; Range: 36.0-47.0; Units: %; Status: F Test: MEAN CORPUSCULAR VOLUME; Value: 85.4; Range: 80.0-96.0; Units: fl; Status: F Test: MEAN CORPUSCULAR HEMOGLOBIN; Value: 28.3; Range: 27.0-33.0; Units: pg; Status: F Test: MEAN CORPUSCULAR HGB CONC; Value: 33.1; Range: 32.0-36.5; Units: g/dl; Status: F Test: RED CELL DISTRIBUTION WIDTH; Value: 13.2; Range: 11.5-14.5; Units: %; Status: F Test: PLATELET COUNT, AUTOMATED; Value: 325; Range: 150-450; Units: k/mm3; Status: F Test: NEUTROPHILS %; Value: 63.4; Range: 36.0-66.0; Units: %; Status: F Test: LYMPH %; Value: 25.8; Range: 24.0-44.0; Units: %; Status: F Test: MONO %; Value: 5.3; Range: 0.0-5.0; Abnormal: Above high normal; Units: %; Status: F Test: EOS %; Value: 2.0; Range: 0.0-3.0; Units: %; Status: F Test: BASO %; Value: 1.8; Range: 0.0-1.0; Abnormal: Above high normal; Units: %; Status: F Test: LARGE UNSTAINED CELL %; Value: 1.8; Range: 0.0-4.0; Units: %; Status: F Test: NEUTROPHILS #; Value: 6.9; Range: 1.8-7.7; Units: K/mm3; Status: F Test: LYMPH #; Value: 3.0; Range: 1.5-4.5; Units: K/mm3; Status: F Test: MONO #; Value: 0.6; Range: 0.0-0.8; Units: K/mm3; Status: F Test: EOS #; Value: 0.2; Range: 0.0-0.50; Units: K/mm3; Status: F Test: BASO #; Value: 0.2; Range: 0.0-0.2; Units: K/mm3; Status: F Test: LARGE UNSTAINED CELL #; Value: 0.2; Range: 0.0-0.4; Units: K/mm3; Status: F Lab Order: [facility]; SPEC07/16/16 16:43 Test: GLUCOSE, FASTING; Value: 93; Range: 70-105; Units: MG/DL; Status: F Test: BLOOD UREA NITROGEN; Value: 5; Range: 7-18; Abnormal: Below low normal; Units: MG/DL; Status: F Test: CREATININE FOR GFR; Value: 0.62; Range: 0.55-1.02; Units: MG/DL; Status: F Test: GLOMERULAR FILTRATION RATE; Value: > 60.0; Range: >60; Status: F Test: SODIUM LEVEL; Value: 142; Range: 136-145; Units: MEQ/L; Status: F Test: POTASSIUM SERUM; Value: 4.6; Range: 3.5-5.1; Units: MEQ/L; Status: F Test: CHLORIDE LEVEL; Value: 106; Range: 98-107; Units: MEQ/L; Status: F Test: CARBON DIOXIDE LEVEL; Value: 27; Range: 21-32; Units: MEQ/L; Status: F Test: ANION GAP; Value: 9; Range: 8-16; Units: MEQ/L; Status: F Test: CALCIUM LEVEL; Value: 9.0; Range: 8.5-10.1; Units: MG/DL; Status: F Test Note: ; Units are mL/min/1.73 m2 Chronic Kidney Disease Staging per NKF: Stage I & II GFR >=60 Normal to Mildly Decreased Stage III GFR 30-59 Moderately Decreased Stage IV GFR 15-29 Severely Decreased Stage V GFR <15 Very Little GFR Left ESRD GFR <15 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 Lab Order: UCG- In Lab; SPEC07/16/16 16:43 Test: URINE PREG TEST; Value: NEGATIVE; Range: NEGATIVE; Status: F Lab Order: UA; SPEC07/16/16 16:43 Test: APPEARANCE, URINE; Value: CLEAR; Range: CLEAR; Status: F Test: COLOR, URINE; Value: STRAW; Range: YELLOW; Status: F Test: PH,URINE; Value: 7.0; Range: 5.0-9.0; Units: UNITS; Status: F Test: SPECIFIC GRAVITY URINE AUTO; Value: 1.009; Range: 1.002-1.035; Status: F Test: PROTEIN, URINE AUTO; Value: NEGATIVE; Range: NEGATIVE; Units: mg/dL; Status: F Test: GLUCOSE, URINE (UA) AUTO; Value: NEGATIVE; Range: NEGATIVE; Units: mg/dL; Status: F Test: KETONE, URINE AUTO; Value: NEGATIVE; Range: NEGATIVE; Units: mg/dL; Status: F Test: UROBILINOGEN, URINE AUTO; Value: 0.2; Range: 0.0-2.0; Units: mg/dL; Status: F Test: BILIRUBIN, URINE AUTO; Value: NEGATIVE; Range: NEGATIVE; Status: F Test: NITRITE, URINE AUTO; Value: NEGATIVE; Range: NEGATIVE; Status: F Test: LEUKOCYTE ESTERASE, URINE AUTO; Value: NEGATIVE; Range: NEGATIVE; Status: F Test: BLOOD, URINE BLOOD; Value: NEGATIVE; Range: NEGATIVE; Status: F Test: WBC, URINE AUTO; Value: 0; Range: 0-3; Units: /HPF; Status: F Test: RBC, URINE AUTO; Value: 4; Range: 0-3; Abnormal: Above high normal; Units: /HPF; Status: F Test: BACTERIA, URINE AUTO; Value: NEGATIVE; Range: NEGATIVE; Status: F Test: SQUAMOUS EPITHELIAL CELL UR AU; Value: 1; Range: 0-6; Units: /HPF; Status: F Test: MUCUS, URINE; Value: SMALL; Range: NEGATIVE; Status: F Test: HYALINE CAST, URINE AUTO; Value: 0; Range: 0-1; Units: /LPF; Status: F Lab Order: GC & Chlamydia Amplification; SPEC'M 07/16/16 16:43 Test: CHLAMYDIA DNA AMPLIFICATION; Value: NEGATIVE; Range: NEGATIVE; Status: F Test: GC DNA AMPLIFICATION; Value: NEGATIVE; Range: NEGATIVE; Status: F Lab Order: Wet Prep; SPEC'M 07/16/16 16:43 Test: WET PREP; Value: WET PREP RESULT; Status: F Test: WET PREP; Value: MANY EPITHELIAL CELLS PRESENT; Status: F Test: WET PREP; Value: FEW WBC; Status: F Test: WET PREP; Value: FEW SHORT RODS PRESENT; Status: F Test: WET PREP; Value: FEW LONG RODS PRESENT; Status: F Lab Order: Ca 125; SPEC'M 07/16/16 16:43 Test: CA 125; Value: 6.6; Range: <30.2; Units: U/ML; Status: F Test Note: ; THE CA 125 ASSAY IS PERFORMED ON THE opinions.hR BY CHEMILUMINESCENCE AND SHOULD NOT BE COMPARED INTERCHANGEABLY WITH OTHER METHODS. IT SHOULD NOT BE USED ALONE A SCREENING TEST OR DIAGNOSIS FOR THE PRESENCE OR ABSENCE OF MALIGNANT DISEASE. PREDICTIONS OF DISEASE RECURRENCE SHOULD NOT BE BASED SOLELY ON VALUES OBTAINED FROM SERIAL PATIENT SERUM VALUES. Radiology Order: -US Pelvic Non-Ob Complete Test: -US Pelvic Non-Ob Complete REASON FOR EXAMINATION: Adnexal Pain r/o Torsion; Pelvic and endovaginal probe ultrasound, 07/16/2016.; ; Clinical history. Right lower quadrant pain.; ; Comparison: CT abdomen pelvis and pelvic ultrasound 07/09/2016.; ; Sonographic evaluation of the pelvis performed. Bladder has very low fluid; volume and endovaginal probe followed. There is a retroverted uterus measuring; about 7.1 x 4.5 x 6.3 cm. Endometrial stripe is centrally located and has a; thickness of 2.1 mm. Again, the junctional zone is not well defined, but image; quality in the retroverted uterus is not optimal. Whether this is image artifact; or sign of adenomyosis of the uterus is uncertain. However, there is no definite; uterine mass or contour abnormality and no free fluid in the cul-de-sac. The; right ovary is 2.4 x 1.3 x 0.9 cm and the left ovary 3.4 x 1.9 x 1.8 cm. Both; ovaries show Doppler tracings with resistive index of 0.49 on the right and 0.48; on the left. There is a dominant follicle of 2 cm on the left side (cyst defined; at 2.5 cm). Medial to the right ovary is a linear cystic structure that is; likely a hydrosalpinx. There is no flow seen within it. Trace amount of fluid; is seen in the endometrial cavity in the body and lower uterine segment.; ; Impression:; ; 1. The bilateral ovaries are fairly symmetric in size and show normal blood; flow, no torsion. Dominant follicle on the left at 2 cm. The right adnexal; region shows a linear tubular structure without flow within it, most likely; hydrosalpinx.; ; 2. Retroverted uterus with small amount of fluid in the endometrial cavity in; the body and lower uterine segment, with the endometrial stripe up to 2.1 mm.; Otherwise no uterine mass or contour abnormality.; ; ; Signed by; Rangel oRque MD 07/16/2016 07:41 P; Radiology Order: Transvaginal NON- US Test: Transvaginal NON- US REASON FOR EXAMINATION: EVAL OVARIES; Pelvic and endovaginal probe ultrasound, 07/16/2016.; ; Clinical history. Right lower quadrant pain.; ; Comparison: CT abdomen pelvis and pelvic ultrasound 07/09/2016.; ; Sonographic evaluation of the pelvis performed. Bladder has very low fluid; volume and endovaginal probe followed. There is a retroverted uterus measuring; about 7.1 x 4.5 x 6.3 cm. Endometrial stripe is centrally located and has a; thickness of 2.1 mm. Again, the junctional zone is not well defined, but image; quality in the retroverted uterus is not optimal. Whether this is image artifact; or sign of adenomyosis of the uterus is uncertain. However, there is no definite; uterine mass or contour abnormality and no free fluid in the cul-de-sac. The; right ovary is 2.4 x 1.3 x 0.9 cm and the left ovary 3.4 x 1.9 x 1.8 cm. Both; ovaries show Doppler tracings with resistive index of 0.49 on the right and 0.48; on the left. There is a dominant follicle of 2 cm on the left side (cyst defined; at 2.5 cm). Medial to the right ovary is a linear cystic structure that is; likely a hydrosalpinx. There is no flow seen within it. Trace amount of fluid; is seen in the endometrial cavity in the body and lower uterine segment.; ; Impression:; ; 1. The bilateral ovaries are fairly symmetric in size and show normal blood; flow, no torsion. Dominant follicle on the left at 2 cm. The right adnexal; region shows a linear tubular structure without flow within it, most likely; hydrosalpinx.; ; 2. Retroverted uterus with small amount of fluid in the endometrial cavity in; the body and lower uterine segment, with the endometrial stripe up to 2.1 mm.; Otherwise no uterine mass or contour abnormality.; ; ; Signed by; Rangel Roque MD 07/16/2016 07:41 P; Radiology Order: DUPLEX SCAN LIMITED (DOPPLER) Test: DUPLEX SCAN LIMITED (DOPPLER) REASON FOR EXAMINATION: R/O TORSION; Pelvic and endovaginal probe ultrasound, 07/16/2016.; ; Clinical history. Right lower quadrant pain.; ; Comparison: CT abdomen pelvis and pelvic ultrasound 07/09/2016.; ; Sonographic evaluation of the pelvis performed. Bladder has very low fluid; volume and endovaginal probe followed. There is a retroverted uterus measuring; about 7.1 x 4.5 x 6.3 cm. Endometrial stripe is centrally located and has a; thickness of 2.1 mm. Again, the junctional zone is not well defined, but image; quality in the retroverted uterus is not optimal. Whether this is image artifact; or sign of adenomyosis of the uterus is uncertain. However, there is no definite; uterine mass or contour abnormality and no free fluid in the cul-de-sac. The; right ovary is 2.4 x 1.3 x 0.9 cm and the left ovary 3.4 x 1.9 x 1.8 cm. Both; ovaries show Doppler tracings with resistive index of 0.49 on the right and 0.48; on the left. There is a dominant follicle of 2 cm on the left side (cyst defined; at 2.5 cm). Medial to the right ovary is a linear cystic structure that is; likely a hydrosalpinx. There is no flow seen within it. Trace amount of fluid; is seen in the endometrial cavity in the body and lower uterine segment.; ; Impression:; ; 1. The bilateral ovaries are fairly symmetric in size and show normal blood; flow, no torsion. Dominant follicle on the left at 2 cm. The right adnexal; region shows a linear tubular structure without flow within it, most likely; hydrosalpinx.; ; 2. Retroverted uterus with small amount of fluid in the endometrial cavity in; the body and lower uterine segment, with the endometrial stripe up to 2.1 mm.; Otherwise no uterine mass or contour abnormality.; ; ; Signed by; Rangel Roque MD 07/16/2016 07:41 P; Outcome: 18:34 Discharge ordered by Provider. jk8 18:45 Discharge Assessment: patient administered narcotics - no. The following High Risk kr3 Discharge criteria are identified: None. Discharged to home ambulatory. Condition: stable. Discharge instructions given to patient, Instructed on discharge instructions, follow up and referral plans. medication usage, Demonstrated understanding of instructions, medications, Pt was receptive of discharge instructions/ teaching. Prescriptions given X 3. Ultrasound Study completed. Property sent home with patient. 18:46 Patient left the ED. kr3 Signatures: Dispatcher [employer] EDMS Tanna Betancourt, RN RN kcs Ky SearsRN RN Joyce López, ROUND KILN DRAWER ROUND KILN DRAWER jam1 Denise DooleyRN RN kr3 Bassam Watkins, ROUND KILN DRAWER ROUND KILN DRAWER dd6 Kim Logan, ROUND KILN DRAWER ROUND KILN DRAWER ar3 Terence Hung PA PA mo1 Anita Adrian am17 Rianna Joseph RN RN ms18 Cory Cuellar PA-C PA-C jk8 Beck, Gabriela gjb Redder, Kathie klr Chart Complete DEJA
--- NOTE | 2016-07-18 19:47 | EDDOCDS ---
Physician Documentation [facility] Name: Hailee Bond Age: 35 yrs Sex: Female : 1980 Arrival Date: 07/16/2016 Time: 13:51 Bed I4 / M4 Private MD: Markus Finley W Disposition: 07/16/16 18:34 Discharged to Home/Self Care. Impression: Female pelvic inflammatory disease, unspecified. - Condition is Stable. - Prescriptions for naproxen 500 mg Oral tablet - take 1 tablet by ORAL route every 12 hours; 28 tablet. Nexium 20 mg Oral Capsule - take 1 capsule by ORAL route once daily; 20 capsule. Tylenol 325 mg Oral Tablet - take 2 tablet by ORAL route every 6 hours as needed; 1 bottle. - Medication Reconciliation, Local Pharmacy Hours form. - Follow up: Private Physician; When: 1 - 2 days; Reason: Recheck today's complaints. Follow up: Emergency Department; When: As soon as possible; Reason: Fever > 102F, Worsening of conditions. - Problem is an ongoing problem. - Symptoms are unchanged. Historical: - Allergies: SULFA (SULFONAMIDES); - Home Meds: 1. doxycycline hyclate 100 mg Oral cap 1 cap every 12 hours for 14 days - PMHx: none; - PSHx: D & C; Bladder suspension; Uterine Ablation; Tubal ligation; - Social history: Smoking status: Patient states was never smoker of tobacco. No barriers to communication noted, The patient speaks fluent Occitan. - Family history: Not pertinent. - : The pt / caregiver states he / she is not on anticoagulants. Home medication list is obtained from the patient. - Exposure Risk Screening:: None identified. 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 4 in. (162.56 cm) (R); 18:37 BP 136 / 63; Pulse 74; Resp 18; Temp 97.5; Pulse Ox 98% ; Pain 5/10; jam1 13:52 Body Mass Index 31.24 (82.55 kg, 162.56 cm) dd6 MDM: 16:40 Set up pelvic ordered. jk8 16:40 CBC with Diff Ordered. EDMS 16:40 BMP Ordered. EDMS 16:40 UCG- In Lab Ordered. EDMS 16:40 UA Ordered. EDMS 16:40 GC & Chlamydia Amplification Ordered. EDMS 16:40 Wet Prep Ordered. EDMS 16:42 -US Pelvic Non-Ob Complete Ordered. EDMS 16:52 Ca 125 Ordered. EDMS 17:11 CBC with Diff Reviewed. jk8 17:11 UA Reviewed. jk8 17:11 UCG- In Lab Reviewed. jk8 17:11 Wet Prep Reviewed. jk8 17:11 Transvaginal NON- US Ordered. EDMS 17:12 DUPLEX SCAN LIMITED (DOPPLER) Ordered. EDMS 17:13 BMP Reviewed. jk8 18:36 -US Pelvic Non-Ob Complete Reviewed. jk8 18:36 Transvaginal NON- US Reviewed. jk8 18:36 DUPLEX SCAN LIMITED (DOPPLER) Reviewed. jk8 18:48 [facility] Payment Agreement was scanned into Sist[employer] and attached to record. b 18:48 Financial registration complete. gjb 21:50 T-Sheet-- Draft Copy was scanned into Sist[employer] and attached to record. klr Signatures: Dispatcher [employer] Denise Lopez,RN RN darrell3 Rianna Joseph RN RN ms18 Cory Cuellar PA-C PA-C jk8 Beck, Gabriela gjb Redder, Kathie klr The chart was reviewed and I authenticate all verbal orders and agree with the evaluation and treatment provided.Attachments: 18:48 [facility] Payment Agreement b 21:50 T-Sheet-- Draft Copy klr Chart Complete MTDD
--- NOTE | 2016-07-18 19:47 | EDDOCDS ---
[facility]ation [facility] Name: Hailee Bond Age: 35 yrs Sex: Female : 1980 Arrival Date: 07/16/2016 Time: 13:51 Bed I4 / M4 Private MD: Markus Finley W Disposition: 07/16/16 18:34 Discharged to Home/Self Care. Impression: Female pelvic inflammatory disease, unspecified. - Condition is Stable. - Prescriptions for naproxen 500 mg Oral tablet - take 1 tablet by ORAL route every 12 hours; 28 tablet. Nexium 20 mg Oral Capsule - take 1 capsule by ORAL route once daily; 20 capsule. Tylenol 325 mg Oral Tablet - take 2 tablet by ORAL route every 6 hours as needed; 1 bottle. - Medication Reconciliation, Local Pharmacy Hours form. - Follow up: Private Physician; When: 1 - 2 days; Reason: Recheck today's complaints. Follow up: Emergency Department; When: As soon as possible; Reason: Fever > 102F, Worsening of conditions. - Problem is an ongoing problem. - Symptoms are unchanged. Historical: - Allergies: SULFA (SULFONAMIDES); - Home Meds: 1. doxycycline hyclate 100 mg Oral cap 1 cap every 12 hours for 14 days - PMHx: none; - PSHx: D & C; Bladder suspension; Uterine Ablation; Tubal ligation; - Social history: Smoking status: Patient states was never smoker of tobacco. No barriers to communication noted, The patient speaks fluent Hungarian. - Family history: Not pertinent. - : The pt / caregiver states he / she is not on anticoagulants. Home medication list is obtained from the patient. - Exposure Risk Screening:: None identified. 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 4 in. (162.56 cm) (R); 18:37 BP 136 / 63; Pulse 74; Resp 18; Temp 97.5; Pulse Ox 98% ; Pain 5/10; jam1 13:52 Body Mass Index 31.24 (82.55 kg, 162.56 cm) dd6 MDM: 16:40 Set up pelvic ordered. jk8 16:40 CBC with Diff Ordered. EDMS 16:40 BMP Ordered. EDMS 16:40 UCG- In Lab Ordered. EDMS 16:40 UA Ordered. EDMS 16:40 GC & Chlamydia Amplification Ordered. EDMS 16:40 Wet Prep Ordered. EDMS 16:42 -US Pelvic Non-Ob Complete Ordered. EDMS 16:52 Ca 125 Ordered. EDMS 17:11 CBC with Diff Reviewed. jk8 17:11 UA Reviewed. jk8 17:11 UCG- In Lab Reviewed. jk8 17:11 Wet Prep Reviewed. jk8 17:11 Transvaginal NON- US Ordered. EDMS 17:12 DUPLEX SCAN LIMITED (DOPPLER) Ordered. EDMS 17:13 BMP Reviewed. jk8 18:36 -US Pelvic Non-Ob Complete Reviewed. jk8 18:36 Transvaginal NON- US Reviewed. jk8 18:36 DUPLEX SCAN LIMITED (DOPPLER) Reviewed. jk8 18:48 [facility] Payment Agreement was scanned into TwitChat and attached to record. b 18:48 Financial registration complete. gjb 21:50 T-Sheet-- Draft Copy was scanned into TwitChat and attached to record. klr Signatures: Dispatcher [employer] Denise Lopez,RN RN darrell3 Rianna Joseph RN RN ms18 Croy Cuellar PA-C PA-C jk8 Beck, Gabriela gjb Redder, Kathie klr The chart was reviewed and I authenticate all verbal orders and agree with the evaluation and treatment provided.Attachments: 18:48 [facility] Payment Agreement b 21:50 T-Sheet-- Draft Copy klr Chart Complete MTDD
== END 2016-07-16 18:46 | disposition home or self-care (01) ==
LOC: M ED 13:51
DX: N73.9 Female pelvic inflammatory disease, unspecified (principal); N83.02 Follicular cyst of left ovary; Z88.2 Allergy status to sulfonamides

== ENCOUNTER 2016-11-08 12:40 | Day surgery (SDC) | payer BC ==
[~2016-11-08] VITALS: Ht 162.6 cm; Wt 88.0 kg
[2016-11-08] MEDS ORDERED: LR 1,000 ML IV ONE (12:45)
[2016-11-08] MEDS ORDERED: LR 1,000 ML IV SCH ×3 (13:00→16:30)
[2016-11-08 13:17] LABS: MEAN CORPUSCULAR HEMOGLOBIN 29.4 pg (27.0-33.0); MEAN CORPUSCULAR HGB CONC 33.9 g/dl (32.0-36.5); MEAN CORPUSCULAR VOLUME 86.8 fl (80.0-96.0); RED CELL DISTRIBUTION WIDTH 12.6 % (11.5-14.5); WHITE BLOOD COUNT 11.4 K/mm3 (4.0-10.0)
[2016-11-08] MEDS ORDERED: fentaNYL 100 MCG/2 ML INJECTION (J3010) As Ordered ONE ×2 (13:42→15:29)
[2016-11-08] MEDS ORDERED: MIDAZOLAM INJ 2 MG/2 ML VIAL (J2250) As Ordered ONE (13:42)
[2016-11-08] MEDS ORDERED: LIDOCAINE 2% INJ 100 MG/5 ML SDV (FOR ANES.) As Ordered ONE (13:43)
[2016-11-08] MEDS ORDERED: PROPOFOL 200 MG/20 ML VIAL As Ordered ONE (13:43)
[2016-11-08] MEDS ORDERED: ROCURONIUM BROMIDE 50 MG/5 ML VIAL As Ordered ONE (13:43)
[2016-11-08] MEDS ORDERED: ONDANSETRON 4MG/2ML VIAL (J2405) As Ordered ONE (14:41)
[2016-11-08] MEDS ORDERED: GLYCOPYRROLATE INJ 0.2 MG/ML 2 ML VIAL As Ordered ONE (14:41)
[2016-11-08] MEDS ORDERED: NEOSTIGMINE 1MG/ML 5 ML SYRINGE (J2710) As Ordered ONE (14:41)
[2016-11-08] MEDS ORDERED: KETOROLAC 60 MG/2 ML VIAL (J1885) As Ordered ONE (14:41)
[2016-11-08] MEDS ORDERED: MEPERIDINE INJ 25 MG/ML VIAL (J2175) As Ordered ONE (15:33)
[2016-11-08] MEDS ORDERED: MORPHINE 1MG/ML IN 0.9% NACL 100ML IV BAG As Ordered ONE (15:51)
[2016-11-08] MEDS ORDERED: MEPERIDINE INJ 25 MG/ML VIAL (J2175) IV PRN (16:15)
[2016-11-08] MEDS ORDERED: diphenhydrAMINE INJ 50MG/ML VIAL (J1200) IV PRN (16:15)
[2016-11-08] MEDS ORDERED: ONDANSETRON 4MG/2ML VIAL (J2405) IV PRN ×2 (16:15)
[2016-11-08] MEDS ORDERED: MORPHINE 1MG/ML IN 0.9% NACL 100ML IV BAG IV PRN (16:15)
[2016-11-08] MEDS ORDERED: EPIDURAL/PCA KEYS XX PRN (16:15)
[2016-11-08] MEDS ORDERED: NALBUPHINE HCL 10 MG/ML AMP (J2300) IV PRN (16:15)
[2016-11-08] MEDS ORDERED: NORCO, ANEXSIA 5/325MG TABLET (HYDROcodone/ACETAMINOPHEN) PO PRN (16:15)
[2016-11-08] MEDS ORDERED: NALOXONE INJ 0.4 MG/1 ML VIAL (J2310) IV PRN (16:15)
[2016-11-08] MEDS ORDERED: fentaNYL 100 MCG/2 ML INJECTION (J3010) IV PRN (16:15)
[2016-11-08 16:30] VITALS: BP 116/61
[2016-11-08 17:00] VITALS: BP 118/59
[2016-11-08 18:00] VITALS: BP 110/59
[2016-11-08 19:00] VITALS: BP 121/56
[2016-11-08 20:00] VITALS: BP 120/63
[2016-11-08 21:00] VITALS: BP 126/58
[2016-11-09] VITALS: BP 111/63
[2016-11-09] MEDS: IBUPROFEN 600 MG TAB PO PRN ×2 (00:48→08:10)
[2016-11-09 02:00] VITALS: BP 118/55
[2016-11-09 04:00] VITALS: BP 102/55
[2016-11-09] MEDS ORDERED: NORCO, ANEXSIA 5/325MG TABLET (HYDROcodone/ACETAMINOPHEN) PO PRN (06:00)
[2016-11-09 06:46] LABS: MEAN CORPUSCULAR HEMOGLOBIN 29.8 pg (27.0-33.0); MEAN CORPUSCULAR HGB CONC 34.4 g/dl (32.0-36.5); MEAN CORPUSCULAR VOLUME 86.7 fl (80.0-96.0); RED CELL DISTRIBUTION WIDTH 12.4 % (11.5-14.5); WHITE BLOOD COUNT 13.1 K/mm3 (4.0-10.0)
[2016-11-09 08:00] VITALS: BP 134/54
[2016-11-09] MEDS ORDERED: ADVI200C5 PO (08:28)
[2016-11-09] MEDS ORDERED: NORC1TAB4 PO (08:28)
--- NOTE | 2016-12-13 16:46 | RO ---
DATE OF PROCEDURE: 11/08/2016 PREOPERATIVE DIAGNOSIS: Dysmenorrhea menorrhagia. POSTOPERATIVE DIAGNOSES: Dysmenorrhea menorrhagia. PROCEDURE: Total vaginal hysterectomy with right salpingectomy. SURGEON: Celestina Bearden MD [employer] INSTRUCTOR: Daria Marques ANESTHESIA: General endotracheal. BRIEF DESCRIPTION OF PROCEDURE AND FINDINGS: aMrie was brought to the operating room, where sufficient general endotracheal anesthesia was induced, and she was prepped, draped, and positioned in the usual sterile fashion. The bladder was emptied, the weighted speculum was placed and anterior and posterior aspect of the cervix was grasped with a single-tooth tenaculum. A circumferential incision was made around the base of the cervix. The cardinal ligaments were isolated and they were clamped with the Hogue clamps, transected and ligated using #0 Vicryl suture which was used throughout. The dissection continued anteriorly and posteriorly to create the bladder flap anterior and to enter in to the peritoneal cavity posterior so that the uterosacral ligaments could be clamped, transected and ligated and marked for later reattachment to the cuff. I then continued the dissection laterally along the uterine vasculature until the uterus with the right fallopian could be delivered. We were not able to bring down the left fallopian tube. Patient retained her ovaries as was her preference. After removal of uterus and the right fallopian tube, the pedicles were evaluated. Good hemostasis was confirmed and the vaginal cuff was closed in the usual fashion with the uterosacrals of course reattached and efforts made for good support in this young patient. Angle stitches and #0 Vicryl placed and the cuff was closed with running lock stitches #0 Vicryl after the reattachment. Good approximation and hemostasis were achieved. Estimated blood loss for the procedure was about 50 cc. Fluid replacement was crystalloid. COMPLICATIONS: None. CONDITION AND DISPOSITION: Marie tolerated the procedure well and was recovering in the recovery room in good condition.
== END 2016-11-09 08:45 | disposition home or self-care (01) ==
LOC: M SDC 12:40 → M PED 16:20 → M SDC 11-09 08:45
PROVIDERS: ATTEND Obstetrics & Gynecology
DX: N92.0 Excessive and frequent menstruation with regular cycle (principal); N94.10 Unspecified dyspareunia; R32 Unspecified urinary incontinence; E66.9 Obesity, unspecified; Z98.51 Tubal ligation status; Z88.2 Allergy status to sulfonamides
CPT/HCPCS: 36415; 58262; 85027; 86850; 86900; 86901; 88307; J0690; J1885; J2175; J2250; J2405; J2710; J3010

== ENCOUNTER → 2017-02-21 | Outpatient (REF) | payer BC ==
[~2017-02-21] MED LIST: ADVI200C5 PO; NORC1TAB4 PO
[2017-02-21 12:49] LABS: MEAN CORPUSCULAR HEMOGLOBIN 29.2 pg (27.0-33.0); MEAN CORPUSCULAR HGB CONC 33.2 g/dl (32.0-36.5); RED CELL DISTRIBUTION WIDTH 12.4 % (11.5-14.5); WHITE BLOOD COUNT 8.7 K/mm3 (4.0-10.0)
[2017-02-21 14:42] LABS: ALBUMIN 3.7 GM/DL (3.2-5.2); ALBUMIN/GLOBULIN RATIO 1.16 (1.00-1.93); ALKALINE PHOSPHATASE 72 U/L (45-117); ALT/SGPT 19 U/L (12-78); ANION GAP 9 MEQ/L (8-16); AST/SGOT 7 U/L (15-37); BILIRUBIN,TOTAL 0.3 MG/DL (0.2-1.0); BLOOD UREA NITROGEN 10 MG/DL (7-18); CALCIUM LEVEL 8.6 MG/DL (8.5-10.1); CARBON DIOXIDE LEVEL 27 MEQ/L (21-32); CHLORIDE LEVEL 108 MEQ/L (98-107); CHOLESTEROL LEVEL 146 MG/DL (<200); CREATININE FOR GFR 0.64 MG/DL (0.55-1.02); FREE T4 0.99 NG/DL (0.76-1.46); GLOMERULAR FILTRATION RATE > 60.0 (>60); GLUCOSE, FASTING 101 MG/DL (70-105); POTASSIUM SERUM 4.8 MEQ/L (3.5-5.1); SODIUM LEVEL 144 MEQ/L (136-145); TOTAL PROTEIN 6.9 GM/DL (6.4-8.2); TRIGLYCERIDES LEVEL 101 MG/DL (<150)
== END ==
LOC: M SFHCCLAY 07:23
PROVIDERS: ATTEND Family Medicine
DX: Z00.00 Encounter for general adult medical examination without abnormal findings (principal); R63.5 Abnormal weight gain

== ENCOUNTER 2017-10-31 09:31 | Day surgery (SDC) | payer BC ==
[2017-10-31] MEDS ORDERED: LIDOCAINE 2% INJ 100 MG/5 ML SDV (FOR ANES.) As Ordered (10:17)
[2017-10-31] MEDS ORDERED: PROPOFOL 200 MG/20 ML VIAL As Ordered ×2 (10:17→10:18)
[2017-10-31] MEDS: NS 1,000 ML IV (11:04)
== END 2017-10-31 12:16 | disposition home or self-care (01) ==
LOC: M OPP 09:31
DX: R10.2 Pelvic and perineal pain (principal); K62.5 Hemorrhage of anus and rectum; K59.00 Constipation, unspecified; K62.1 Rectal polyp; R13.10 Dysphagia, unspecified; K21.9 Gastro-esophageal reflux disease without esophagitis; R11.0 Nausea; E66.9 Obesity, unspecified; Z88.2 Allergy status to sulfonamides; Z83.71 Family history of colonic polyps; Z80.49 Family history of malignant neoplasm of other genital organs; Z87.891 Personal history of nicotine dependence
CPT/HCPCS: 45380

== ENCOUNTER 2018-04-08 16:17 | Emergency (ER) | payer BC ==
[2018-04-08 16:47] LABS: BASO % 0.3 % (0.0-1.0); EOS # 0.2 10^3/uL (0.0-0.50); EOS % 1.4 % (0.0-3.0); HEMATOCRIT 38.3 % (36.0-47.0); HEMOGLOBIN 12.8 g/dl (12.0-15.5); IMMATURE GRANULOCYTE % 0.7 % (0-3.0); LYMPH # 2.3 10^3/uL (1.5-4.5); LYMPH % 17.5 % (24.0-44.0); MEAN CORPUSCULAR HEMOGLOBIN 28.7 pg (27.0-33.0); MEAN CORPUSCULAR HGB CONC 33.4 g/dl (32.0-36.5); MEAN CORPUSCULAR VOLUME 85.9 fl (80.0-96.0); MONO % 7.3 % (0.0-5.0); NEUTROPHILS # 9.6 10^3/uL (1.8-7.7); NEUTROPHILS % 72.8 % (36.0-66.0); PLATELET COUNT, AUTOMATED 346 10^3/uL (150-450); RED BLOOD COUNT 4.46 10^6/uL (4.00-5.40); RED CELL DISTRIBUTION WIDTH 12.5 % (11.5-14.5); WHITE BLOOD COUNT 13.2 10^3/uL (4.0-10.0)
[2018-04-08] MEDS: KETOROLAC 30 MG/ML VIAL (J1885) IV (17:00)
[2018-04-08 17:03] LABS: D-DIMER QUANT 404.4 ng/ml (<500)
[2018-04-08 17:40] LABS: BLOOD UREA NITROGEN 9 MG/DL (7-18); CALCIUM LEVEL 8.9 MG/DL (8.5-10.1); CK-MB VALUE MASS < 1.0 NG/ML (<3.6); CPK CREATINE PHOSPHOKINASE 52 U/L (26-192); CREATININE FOR GFR 0.75 MG/DL (0.55-1.30); GLOMERULAR FILTRATION RATE > 60.0 (>60); GLUCOSE, FASTING 113 MG/DL (70-100)
[2018-04-08 17:41] LABS: ALT/SGPT 17 U/L (12-78); AST/SGOT 9 U/L (7-37)
[2018-04-08 17:42] LABS: ALBUMIN 3.8 GM/DL (3.2-5.2)
[2018-04-08 17:43] LABS: ALBUMIN/GLOBULIN RATIO 1.06 (1.00-1.93); ALKALINE PHOSPHATASE 76 U/L (45-117); BILIRUBIN,DIRECT 0.1 MG/DL (0.0-0.2); BILIRUBIN,TOTAL 0.3 MG/DL (0.2-1.0); LIPASE 113 U/L (73-393); TOTAL PROTEIN 7.4 GM/DL (6.4-8.2)
[2018-04-08 17:44] LABS: ANION GAP 7 MEQ/L (8-16); CARBON DIOXIDE LEVEL 27 MEQ/L (21-32); CHLORIDE LEVEL 106 MEQ/L (98-107); NT-PRO BNP 68 PG/ML (<125); POTASSIUM SERUM 3.4 MEQ/L (3.5-5.1); SODIUM LEVEL 140 MEQ/L (136-145)
[2018-04-08 18:00] LABS: TROPONIN I < 0.02 NG/ML (< 0.10)
[2018-04-08] MEDS ORDERED: ISOVUE-370 76% 100ML VIAL (Q9967) As Ordered (18:07)
[2018-04-08 20:42] LABS: MB/CK RELATIVE INDEX 1.92 (< OR =4)
[2018-04-08 22:47] LABS: GOLD SPEC TUBE RECIEVED
[2018-04-08 23:07] LABS: GOLD SPEC TUBE RECIEVED
== END 2018-04-08 19:08 | disposition home or self-care (01) ==
LOC: M ED 16:17
DX: R07.9 Chest pain, unspecified (principal); R42 Dizziness and giddiness; R11.2 Nausea with vomiting, unspecified; R19.7 Diarrhea, unspecified; Z88.1 Allergy status to other antibiotic agents; Z88.2 Allergy status to sulfonamides
CPT/HCPCS: Q9967

== ENCOUNTER → 2018-04-15 | Outpatient (CLI) | payer BC | LOC: M RAD 14:00 | DX: R42 Dizziness and giddiness (principal) | CPT/HCPCS: 70551 ==

== ENCOUNTER → 2018-10-14 | Outpatient (CLI) | payer BC ==
[~2018-10-14] MED LIST changes: -NORC1TAB4 PO; +NORC1TAB7 PO
--- NOTE | 2018-10-14 11:53 | REP ---
Right lower extremity Duplex Doppler venous ultrasound: Real time compression and duplex Doppler interrogation of the right lower extremity deep venous system is performed. The right common femoral, superficial femoral and popliteal veins are fully compressible with transducer pressure and demonstrate normal spontaneous and phasic flow, without evidence of deep venous thrombosis. Impression: No evidence of deep venous thrombosis of the right lower extremity femoral popliteal venous system. In the distal right thigh there is a hyperechoic area superficially which is ill-defined, measuring 3.9 x 0.7 x 1.8 cm, possibly a hematoma. Electronically Signed by Maurizio Salazar MD 10/14/2018 11:45 A
== END ==
LOC: M RAD 10:51
PROVIDERS: ATTEND Nurse Practitioner Family
DX: M79.604 Pain in right leg (principal)

== ENCOUNTER → 2019-04-08 | Outpatient (REF) | payer BC ==
[2019-04-08 16:53] LABS: BASO # 0.1 10^3/uL (0.0-0.2); BASO % 0.4 % (0.0-1.0); EOS # 0.1 10^3/uL (0.0-0.5); EOS % 0.6 % (0.0-3.0); HEMATOCRIT 42.9 % (36.0-47.0); LYMPH # 2.2 10^3/uL (1.5-5.0); LYMPH % 16.6 % (24.0-44.0); MEAN CORPUSCULAR HGB CONC 32.6 g/dl (32.0-36.5); MEAN CORPUSCULAR VOLUME 88.8 fl (80.0-96.0); MONO # 0.8 10^3/uL (0.0-0.8); MONO % 6.3 % (0.0-5.0); NEUTROPHILS # 9.8 10^3/uL (1.5-8.5); NEUTROPHILS % 75.5 % (36.0-66.0); PLATELET COUNT, AUTOMATED 379 10^3/uL (150-450); RED BLOOD COUNT 4.83 10^6/uL (4.00-5.40)
[2019-04-08 17:15] LABS: MONO REFLEX EBV COMP NEGATIVE (NEGATIVE)
[2019-04-08 17:16] LABS: ALBUMIN 4.1 GM/DL (3.2-5.2); ALT/SGPT 17 U/L (12-78); BILIRUBIN,TOTAL 0.4 MG/DL (0.2-1.0); BLOOD UREA NITROGEN 10 MG/DL (7-18); CALCIUM LEVEL 9.9 MG/DL (8.5-10.1); CARBON DIOXIDE LEVEL 29 MEQ/L (21-32); CHLORIDE LEVEL 106 MEQ/L (98-107); CREATININE FOR GFR 0.73 MG/DL (0.55-1.30); GLOMERULAR FILTRATION RATE > 60.0 (>60); GLUCOSE, FASTING 89 MG/DL (70-100); POTASSIUM SERUM 5.1 MEQ/L (3.5-5.1); SODIUM LEVEL 141 MEQ/L (136-145)
[2019-04-11 00:07] LABS: EBV VIRAL CAPSID AG IgG 62.2 U/mL (0.0-17.9); EBV VIRAL CAPSID AG IgM <36.0 U/mL (0.0-35.9)
== END ==
LOC: M SFHCCLAY 13:44
PROVIDERS: ATTEND Nurse Practitioner Family
DX: R53.83 Other fatigue (principal); R50.9 Fever, unspecified

== ENCOUNTER 2019-06-17 12:35 | Emergency (ER) | payer BC ==
[~2019-06-17] VITALS: Ht 167.6 cm; Wt 93.9 kg
[2019-06-17] MEDS ORDERED: RANI300T (12:40)
[2019-06-17] MEDS ORDERED: VENL75CA47 (12:40)
[2019-06-17] MEDS ORDERED: NS 1,000 ML IV ONE ×2 (13:00→14:15)
[2019-06-17] MEDS ORDERED: PANTOPRAZOLE 40MG INJ (PROTONIX) (C9113) IV ONE (13:00)
[2019-06-17] MEDS ORDERED: ONDANSETRON 4MG/2ML VIAL (J2405) IV ONE (13:00)
--- NOTE | 2019-06-17 13:08 | REP ---
Clinical: Abdominal pain. Technique: Upright view of the chest with supine and upright views of the abdomen and pelvis. Findings: Frontal upright view of the chest demonstrates no acute cardiopulmonary process or free air below the diaphragm to suspect pneumoperitoneum. Supine and upright views of the abdomen and pelvis demonstrate nonspecific bowel gas pattern without obstruction or perforation. No organomegaly. No abnormal calcifications. Skeletal structures normal for age. Impression: Nonspecific bowel gas pattern. Electronically Signed by Jeb Alicia MD 06/17/2019 01:01 P
[2019-06-17 13:24] LABS: BASO % 0.5 % (0.0-1.0); EOS # 0.1 10^3/uL (0.0-0.5); EOS % 1.5 % (0.0-3.0); HEMATOCRIT 43.8 % (36.0-47.0); HEMOGLOBIN 14.1 g/dl (12.0-15.5); LYMPH # 2.1 10^3/uL (1.5-5.0); LYMPH % 24.9 % (24.0-44.0); MEAN CORPUSCULAR HEMOGLOBIN 26.9 pg (27.0-33.0); MEAN CORPUSCULAR HGB CONC 32.2 g/dl (32.0-36.5); MEAN CORPUSCULAR VOLUME 83.4 fl (80.0-96.0); NEUTROPHILS # 5.2 10^3/uL (1.5-8.5); NEUTROPHILS % 60.6 % (36.0-66.0); PLATELET COUNT, AUTOMATED 359 10^3/uL (150-450); RED BLOOD COUNT 5.25 10^6/uL (4.00-5.40); WHITE BLOOD COUNT 8.5 10^3/uL (4.0-10.0)
[2019-06-17 13:57] LABS: ALBUMIN 3.6 GM/DL (3.2-5.2); ALT/SGPT 40 U/L (12-78); AMYLASE 51 U/L (25-115); BILIRUBIN,DIRECT 0.1 MG/DL (0.0-0.2); BILIRUBIN,TOTAL 0.5 MG/DL (0.2-1.0); BLOOD UREA NITROGEN 11 MG/DL (7-18); CALCIUM LEVEL 8.8 MG/DL (8.5-10.1); CARBON DIOXIDE LEVEL 22 MEQ/L (21-32); CHLORIDE LEVEL 104 MEQ/L (98-107); CREATININE FOR GFR 0.62 MG/DL (0.55-1.30); GLOMERULAR FILTRATION RATE > 60.0 (>60); GLUCOSE, FASTING 87 MG/DL (70-100); LIPASE 102 U/L (73-393); POTASSIUM SERUM 3.7 MEQ/L (3.5-5.1); SODIUM LEVEL 137 MEQ/L (136-145); TOTAL PROTEIN 7.3 GM/DL (6.4-8.2)
[2019-06-17] MEDS ORDERED: LOPE-39 PO (15:25)
[2019-06-17] MEDS ORDERED: ZOFR4TAB16 PO (15:25)
[2019-06-17 16:44] VITALS: BP 126/63
== END 2019-06-17 17:01 | disposition home or self-care (01) ==
LOC: M ED 12:35
DX: A08.4 Viral intestinal infection, unspecified (principal); K21.9 Gastro-esophageal reflux disease without esophagitis; Z79.899 Other long term (current) drug therapy; Z88.1 Allergy status to other antibiotic agents; Z88.2 Allergy status to sulfonamides; Z88.8 Allergy status to other drugs, medicaments and biological substances
CPT/HCPCS: 36415; 74021; 80048; 80076; 82150; 83690; 85025; 96361; 96374; 96375; 99284; C9113; J2405

== ENCOUNTER → 2019-10-02 | Outpatient (CLI) | payer BC ==
[~2019-10-02] MED LIST changes: +LOPE-39 PO; +RANI300T; +VENL75CA47; +ZOFR4TAB16 PO
[2019-10-02 12:25] LABS: BASO % 0.4 % (0.0-1.0); EOS # 0.2 10^3/uL (0.0-0.5); EOS % 1.9 % (0.0-3.0); HEMATOCRIT 44.1 % (36.0-47.0); HEMOGLOBIN 14.2 g/dl (12.0-15.5); LYMPH # 2.5 10^3/uL (1.5-5.0); MEAN CORPUSCULAR HEMOGLOBIN 28.2 pg (27.0-33.0); MEAN CORPUSCULAR HGB CONC 32.2 g/dl (32.0-36.5); MEAN CORPUSCULAR VOLUME 87.5 fl (80.0-96.0); MONO # 0.7 10^3/uL (0.0-0.8); MONO % 7.5 % (0.0-5.0); NEUTROPHILS # 5.7 10^3/uL (1.5-8.5); NEUTROPHILS % 62.9 % (36.0-66.0); PLATELET COUNT, AUTOMATED 378 10^3/uL (150-450); RED BLOOD COUNT 5.04 10^6/uL (4.00-5.40); WHITE BLOOD COUNT 9.1 10^3/uL (4.0-10.0)
[2019-10-02 12:51] LABS: COMPLEMENT C3 124 MG/DL (90-180); COMPLEMENT C4 28 MG/DL (10-40); RHEUMATOID FACTOR QUANT < 10.0 IU/ML (<15.0); THYROID STIMULATING HORMONE 0.357 uIU/ML (0.358-3.740)
[2019-10-02 12:52] LABS: THYROGLOBULIN ANTIBODY 23.9 U/ML (<60.0); THYROID PEROXIDASE ANTIBODY < 28.0 U/ML (<60.0)
[2019-10-02 12:53] LABS: ERYTHROCYTE SEDIMENTATION RATE 12 mm/hr (0-20)
== END ==
LOC: M LAB 11:19
PROVIDERS: ATTEND Allergy & Immunology Allergy
DX: T78.3XXA Angioneurotic edema, initial encounter (principal)

== ENCOUNTER → 2020-04-04 | Outpatient (REF) | payer BC ==
[2020-04-04 17:33] LABS: APPEARANCE, URINE CLEAR (CLEAR); BACTERIA, URINE AUTO 1+ (NEGATIVE); BILIRUBIN, URINE AUTO NEGATIVE (NEGATIVE); BLOOD, URINE BLOOD NEGATIVE (NEGATIVE); COLOR, URINE AMBER (YELLOW); GLUCOSE, URINE (UA) AUTO NEGATIVE (NEGATIVE); KETONE, URINE AUTO NEGATIVE (NEGATIVE); LEUKOCYTE ESTERASE, URINE AUTO NEGATIVE (NEGATIVE); MUCUS, URINE SMALL (NEGATIVE); NITRITE, URINE AUTO POSITIVE (NEGATIVE); PROTEIN, URINE AUTO NEGATIVE (NEGATIVE); RBC, URINE AUTO 2 /HPF (0-3); SPECIFIC GRAVITY URINE AUTO 1.016 (1.002-1.035); SQUAMOUS EPITHELIAL CELL UR AU 1 /HPF (0-6); WBC, URINE AUTO 2 /HPF (0-3)
== END ==
LOC: M LAB REF 16:13
PROVIDERS: ATTEND Obstetrics & Gynecology
DX: N39.0 Urinary tract infection, site not specified (principal)

== ENCOUNTER → 2020-05-20 | Outpatient (CLI) | payer SELFPAY | LOC: M LABSMTC 14:19 | PROVIDERS: ATTEND Pediatrics | DX: Z20.828 Contact with and (suspected) exposure to other viral communicable diseases (principal) ==

== ENCOUNTER → 2020-08-05 | Outpatient (CLI) | payer BC ==
--- NOTE | 2020-08-05 10:57 | REPMRS ---
Patient History The patient states she had a clinical breast exam in 03/2020 Family history of breast cancer at age 50 in maternal grandmother. Digital Woman Screen Mammo: August 05, 2020 - Exam #: [id number] Bilateral CC and MLO view(s) were taken. Technologist: Barbara Perrin, Technologist Prior study comparison: April 17, 2012, digital mammo diagnostic bilateral, performed at [facility]. FINDINGS: There are scattered fibroglandular densities. The Volpara volumetric breast density category is:B. There are 2 new well-circumscribed 6 mm nodular densities in the left breast which merit further evaluation. There are 3 smaller nodular densities which were present previously and are unchanged. There has been no other change in the appearance of the mammogram from the prior studies. There is a mild amount of scattered fibroglandular density which is fairly symmetric. There is no other interval development of dominant mass, architectural distortion, or grouped microcalcification suggestive of malignancy. 3-D tomosynthesis shows no additional findings. Assessment: BI-RADS/ACR category 0 mammogram, Incomplete: Need additional imaging evaluation and/or prior mammograms for comparison. Recommendation Ultrasound and special view mammogram of the left breast. This patient's [facility] Lifetime Breast Cancer Risk is estimated at 16.9. %. This mammogram was interpreted with the aid of an FDA-approved computer-aided dectection system. Electronically Signed By: Baljinder Bond MD 08/05/20 [id number]
== END ==
LOC: M WHC 09:26
PROVIDERS: ATTEND Nurse Practitioner Family
DX: R92.2 Inconclusive mammogram (principal)

== ENCOUNTER → 2020-08-15 | Outpatient (CLI) | payer BC ==
--- NOTE | 2020-08-15 16:21 | REP ---
INDICATION: ADDITIONAL VIEWS LEFT BREAST. COMPARISON: 08/05/2020 as well as other prior exams. TECHNIQUE: Spot compression views left breast performed. Left breast ultrasound performed. FINDINGS: There is a smoothly marginated nodule at the 12 o'clock position which is new since the 2012 exam. This is 6 mm in diameter and lies 6 cm from the nipple. Also a confirmed new left retroareolar nodule is smoothly marginated and measures 6 mm in diameter. Real-time sonographic evaluation of left breast performed. At the 12 o'clock position a hypoechoic nodule is visualized measuring 5 mm in diameter likely corresponding to the new nodule on the mammogram. It is not a simple cyst. Recommend ultrasound-guided biopsy. In the retroareolar region a benign simple cyst is visualized measuring 7 x 7 x 4 mm, corresponding to the other new nodule. IMPRESSION: BIRADS/ACR category 4 suspicious. The new nodule in the left retroareolar region corresponds to a benign simple cyst. However, the new nodule at 12 o'clock left breast more posteriorly corresponds to a hypoechoic nodule which is not definitely a cyst. Recommend ultrasound-guided biopsy with postprocedure mammogram. This mammogram was interpreted with the aid of an FDA-approved computer-aided detection system. The patient letter being requested is M4. RECOMMENDATION: Recommend ultrasound-guided biopsy of 12 o'clock nodule left breast, with postprocedure mammogram. <Electronically signed by Maurizio Salazar > 08/15/20 [id number]
== END ==
LOC: M WHC 14:26
PROVIDERS: ATTEND Nurse Practitioner Family
DX: R92.8 Other abnormal and inconclusive findings on diagnostic imaging of breast (principal); N63.21 Unspecified lump in the left breast, upper outer quadrant
CPT/HCPCS: 76642; 77065; G0279

== ENCOUNTER → 2021-02-08 | Outpatient (REF) | payer BC ==
[2021-02-08 12:06] LABS: BASO # 0.1 10^3/uL (0.0-0.2); BASO % 0.6 % (0.0-1.0); EOS # 0.2 10^3/uL (0.0-0.5); HEMOGLOBIN 12.6 g/dl (12.0-15.5); LYMPH # 2.1 10^3/uL (1.5-5.0); LYMPH % 18.7 % (24.0-44.0); MEAN CORPUSCULAR HEMOGLOBIN 26.3 pg (27.0-33.0); MEAN CORPUSCULAR HGB CONC 31.5 g/dl (32.0-36.5); MEAN CORPUSCULAR VOLUME 83.3 fl (80.0-96.0); MONO # 0.8 10^3/uL (0.0-0.8); MONO % 7.4 % (2.0-8.0); NEUTROPHILS # 7.9 10^3/uL (1.5-8.5); NEUTROPHILS % 70.8 % (36.0-66.0); PLATELET COUNT, AUTOMATED 457 10^3/uL (150-450); WHITE BLOOD COUNT 11.1 10^3/uL (4.0-10.0)
[2021-02-08 12:44] LABS: ALBUMIN 3.3 GM/DL (3.2-5.2); ALT/SGPT 22 U/L (12-78); BILIRUBIN,TOTAL 0.5 MG/DL (0.2-1.0); BLOOD UREA NITROGEN 11 MG/DL (7-18); CALCIUM LEVEL 8.9 MG/DL (8.5-10.1); CARBON DIOXIDE LEVEL 28 MEQ/L (21-32); CHLORIDE LEVEL 107 MEQ/L (98-107); CHOLESTEROL LEVEL 187 MG/DL (<200); CHOLESTEROL RISK RATIO 5.194 (<5); CREATININE FOR GFR 0.77 MG/DL (0.55-1.30); FREE T4 0.84 NG/DL (0.76-1.46); GLOMERULAR FILTRATION RATE > 60.0 (>58); GLUCOSE, FASTING 93 MG/DL (70-100); HDL CHOLESTEROL 36 MG/DL (>40); LDL CHOLESTEROL 121 MG/DL (<100); NON-HDL-C 151 MG/DL; POTASSIUM SERUM 4.3 MEQ/L (3.5-5.1); SODIUM LEVEL 139 MEQ/L (136-145); THYROID STIMULATING HORMONE 0.792 uIU/ML (0.358-3.740); TOTAL PROTEIN 7.2 GM/DL (6.4-8.2); TRIGLYCERIDES LEVEL 152 MG/DL (<150)
[2021-02-09 18:07] LABS: Lyme Disease IgG/IgM Antibodie <0.91 ISR (0.00-0.90); Lyme Disease IgM Ab Quantitati <0.80 index (0.00-0.79)
== END ==
LOC: M SFHCCLAY 08:24
PROVIDERS: ATTEND Nurse Practitioner Family
DX: F41.1 Generalized anxiety disorder (principal); E66.09 Other obesity due to excess calories; S30.861A Insect bite (nonvenomous) of abdominal wall, initial encounter; X58.XXXA Exposure to other specified factors, initial encounter; Y92.9 Unspecified place or not applicable; Y99.9 Unspecified external cause status

== ENCOUNTER → 2021-04-21 | Outpatient (CLI) | payer BC ==
--- NOTE | 2021-04-24 18:10 | SLEEPCENT ---
DATE: 04/21/2021 ORDERED BY: M[facility] [place] Nocturnal polysomnography was performed for evaluation of sleep physiology in this patient with a history of excessive somnolence and unrestorative sleep. There was 8 hours and 18 minutes of data reviewed. There were 360 minutes of sleep identified. Sleep latency was prolonged at 25.5 minutes. REM latency was prolonged at 199.5 minutes. Sleep architecture was fragmented. There were two REM cycles noted. The periods of wake resulted in a reduced sleep efficiency at 73.6%. The electrocardiogram showed a sinus rhythm with an average heart rate of 80 beats per minute. Rate ranged 60 to 100. EEG showed fairly normal waveforms for wake and sleep. There were 61 respiratory events identified of 10 seconds in duration or greater for an apnea hypopnea index of 10.2. The events were obstructive, not exclusive to sleep stage, more frequent but not exclusive to the supine posture. Arousals from respiratory events occurred five times per hour and oxygen desaturations were seen to 90%. There was also some scattered limb activity, two trains of 30 events were noted. Limb movement arousal index was 11.5. IMPRESSION: 1. Obstructive sleep apnea syndrome (G47.33). Apnea hypopnea index 10.2. 2. Periodic limb movement disorder (G47.61). Limb movement arousal index 11.4. RECOMMENDATION: The patient should be encouraged to [facility]. In the interim, alcohol and sedative avoidance should be practiced and caution exercised during the operation of motor vehicles. Pending response to pressure therapy, interventions to reduce the frequency arousal from limb activity may also be helpful. cc: RAGHAV Higgins
== END ==
LOC: M SLEEP 20:00
PROVIDERS: ATTEND Physician Assistant
DX: R40.0 Somnolence (principal); G47.33 Obstructive sleep apnea (adult) (pediatric); G47.61 Periodic limb movement disorder

== ENCOUNTER → 2021-06-01 | Outpatient (REF) | payer BC | LOC: M SFHCCLAY 14:42 | PROVIDERS: ATTEND Physician Assistant | DX: R06.02 Shortness of breath (principal); Z53.9 Procedure and treatment not carried out, unspecified reason ==

== ENCOUNTER → 2021-06-01 | Outpatient (CLI) | payer BC ==
--- NOTE | 2021-06-01 14:44 | REP ---
INDICATION: SOB COMPARISON: 04/08/2018 TECHNIQUE: PA and lateral. FINDINGS: The mediastinum and cardiac silhouette are normal. The lung pedraza are clear and without acute consolidation, effusion, or pneumothorax. The skeletal structures are intact and normal. IMPRESSION: No acute cardiopulmonary process. <Electronically signed by Jeb Alicia > 06/01/21 [id number]
== END ==
LOC: M CLY 14:18
PROVIDERS: ATTEND Physician Assistant
DX: R06.02 Shortness of breath (principal)

== ENCOUNTER → 2021-06-02 | Outpatient (REF) | payer BC ==
[2021-06-02 12:12] LABS: BASO # 0.1 10^3/uL (0.0-0.2); BASO % 0.5 % (0.0-1.0); EOS # 0.2 10^3/uL (0.0-0.5); EOS % 1.8 % (0.0-3.0); HEMATOCRIT 35.9 % (36.0-47.0); HEMOGLOBIN 11.2 g/dl (12.0-15.5); LYMPH # 2.4 10^3/uL (1.5-5.0); LYMPH % 20.4 % (24.0-44.0); MEAN CORPUSCULAR HGB CONC 31.2 g/dl (32.0-36.5); MEAN CORPUSCULAR VOLUME 83.3 fl (80.0-96.0); MONO # 0.8 10^3/uL (0.0-0.8); MONO % 6.7 % (2.0-8.0); NEUTROPHILS % 69.6 % (36.0-66.0); PLATELET COUNT, AUTOMATED 459 10^3/uL (150-450); RED BLOOD COUNT 4.31 10^6/uL (4.00-5.40); WHITE BLOOD COUNT 11.5 10^3/uL (4.0-10.0)
[2021-06-02 12:53] LABS: ERYTHROCYTE SEDIMENTATION RATE 37 mm/hr (0-20)
[2021-06-02 13:51] LABS: ALBUMIN 3.7 GM/DL (3.2-5.2); ALT/SGPT 18 U/L (12-78); BILIRUBIN,TOTAL 0.4 MG/DL (0.2-1.0); BLOOD UREA NITROGEN 10 MG/DL (7-18); C REACTIVE PROTEIN QUANTITATIV 0.91 MG/DL (0.00-0.30); CALCIUM LEVEL 9.2 MG/DL (8.5-10.1); CARBON DIOXIDE LEVEL 29 MEQ/L (21-32); CHLORIDE LEVEL 103 MEQ/L (98-107); CREATININE FOR GFR 0.68 MG/DL (0.55-1.30); GLOMERULAR FILTRATION RATE > 60.0 (>58); GLUCOSE, FASTING 86 MG/DL (70-100); POTASSIUM SERUM 4.7 MEQ/L (3.5-5.1); SODIUM LEVEL 137 MEQ/L (136-145); TOTAL PROTEIN 7.4 GM/DL (6.4-8.2)
== END ==
LOC: M SFHCCLAY 09:15
PROVIDERS: ATTEND Physician Assistant
DX: R06.02 Shortness of breath (principal)

== ENCOUNTER → 2021-06-07 | Outpatient (CLI) | payer BC ==
--- NOTE | 2021-06-08 10:35 | ECHO ---
ECHOCARDIOGRAM DATE OF PROCEDURE: 06/07/2021 Age: Gender: Height: 162 cm Weight: 104 kg REFERRING PHYSICIAN: FABIO Salamanca. INDICATION: Shortness of breath. MEASUREMENTS: IVS 1.2 cm LV 4.3 cm LVPW 1.1 cm LA 3.4 cm Aorta 2.6 cm IVC 1.3 cm Left atrium volume index 18 ml/m2 Mitral E wave velocity 87 A wave 66 E prime septal 11.3 E prime lateral 14.8 FINDINGS: This study is of adequate technical quality especially considering patient's body habitus. Left ventricle is normal size. Borderline left ventricle hypertrophy is noted. Preserved LV systolic function with estimated EF 60 to 65%. Normal RV size and systolic function. Both atria appear normal. All four cardiac valves were reasonably well seen and appear normal. No pericardial effusion is noted. Inferior vena cava is normal size and appropriately collapses with inspiration indicative of normal central venous pressure. Aortic root and aortic arch appear normal. Abdominal aorta was not well visualized. Doppler interrogation reveals competent aortic, mitral, tricuspid, and pulmonic valves. Mitral inflow pattern and tissue Doppler imaging of mitral annulus revealed normal diastolic function. CONCLUSIONS: 1. Study is of acceptable technical quality, underlying sinus rhythm. 2. Normal LV size with borderline LVH and preserved LV systolic and diastolic function. 3. No valvular disease. 4. Normal central venous pressure. 5. Unable to estimate pulmonary artery pressure but no signs to suggest pulmonary hypertension. 6. Essentially normal echocardiogram but for borderline LVH. 7. No obvious etiology for dyspnea is apparent from this study.
== END ==
LOC: M CARPUL 13:36
PROVIDERS: ATTEND Physician Assistant
DX: R06.02 Shortness of breath (principal)

== ENCOUNTER → 2021-06-13 | Outpatient (CLI) | payer BC ==
--- NOTE | 2021-06-19 20:54 | SLEEPCENT ---
DATE: 06/13/2021 Nocturnal polysomnography was performed for the titration of pressure therapy in this patient with obstructive sleep apnea, apnea/hypopnea index 10.2. For testing, a [employer] full face mask of medium size was used, 4 cm of water pressure were applied to the circuit and the lights were extinguished. Seven hours and 26 minutes of data were reviewed . There were 340 minutes of sleep identified. Sleep latency was prolonged at 55.5 minutes. REM latency was somewhat short at 54 minutes. Sleep architecture was good with evidence of REM rebound or mid portion of the study. Overall, sleep efficiency 77%. The electrocardiogram showed a sinus rhythm with an average heart rate of 75 beats per minute. EEG showed some artifact but otherwise normal waveforms for wake and sleep. Respiratory events were fully palliated with CPAP to a pressure of +9. Some limb activity was noted but on this occasion the limb movement arousal index was 6.9. IMPRESSION: Obstructive sleep apnea syndrome (G47.33). RECOMMENDATION: Nightly use of pressure therapy 9 cm of water.
== END ==
LOC: M SLEEP 20:00
PROVIDERS: ATTEND Physician Assistant
DX: G47.33 Obstructive sleep apnea (adult) (pediatric) (principal)

== ENCOUNTER → 2021-07-06 | Outpatient (REF) | payer BC | LOC: M SFHCCLAY 16:34 | PROVIDERS: ATTEND Physician Assistant | DX: R09.81 Nasal congestion (principal) ==

== ENCOUNTER → 2021-10-05 | Outpatient (CLI) | payer BC | LOC: M LAB 17:03 | PROVIDERS: ATTEND Internal Medicine Cardiovascular Disease | DX: R06.02 Shortness of breath (principal) ==

== ENCOUNTER → 2022-02-15 | Outpatient (CLI) | payer BC | LOC: M WHC 08:00 | PROVIDERS: ATTEND Nurse Practitioner Family | DX: K76.0 Fatty (change of) liver, not elsewhere classified (principal); R10.11 Right upper quadrant pain ==

== ENCOUNTER → 2022-03-30 | Outpatient (CLI) | payer BC | LOC: M RAD 07:59 | PROVIDERS: ATTEND Nurse Practitioner Family | DX: K52.9 Noninfective gastroenteritis and colitis, unspecified (principal); R10.11 Right upper quadrant pain | CPT/HCPCS: 78227; A9537 ==

== ENCOUNTER → 2022-08-24 | Outpatient (CLI) | payer OTHER | LOC: M PLAIMG 07:48 | PROVIDERS: ATTEND Physician Assistant | DX: S63.641D Sprain of metacarpophalangeal joint of right thumb, subsequent encounter (principal); Y93.9 Activity, unspecified; Y92.9 Unspecified place or not applicable ==

== ENCOUNTER → 2022-12-27 | Outpatient (REF) | payer BC ==
[2022-12-27 11:43] LABS: HEMOGLOBIN 10.9 g/dl (12.0-15.5); MEAN CORPUSCULAR HGB CONC 30.3 g/dl (32.0-36.5); MEAN CORPUSCULAR VOLUME 79.3 fl (80.0-96.0); PLATELET COUNT, AUTOMATED 504 10^3/uL (150-450); RED BLOOD COUNT 4.54 10^6/uL (4.00-5.40); WHITE BLOOD COUNT 11.9 10^3/uL (4.0-10.0)
[2022-12-27 11:57] LABS: HEMOGLOBIN A1c 5.4 % (4.0-6.0)
[2022-12-27 12:17] LABS: THYROID STIMULATING HORMONE 0.844 uIU/ML (0.55-4.78)
[2022-12-27 12:18] LABS: ALBUMIN 3.6 G/DL (3.2-5.2); ALKALINE PHOSPHATASE 92 U/L (46-116); ALT/SGPT 18 U/L (7.0-40); AST/SGOT < 8 U/L (<34); BILIRUBIN,TOTAL 0.5 MG/DL (0.3-1.2); BLOOD UREA NITROGEN 7 MG/DL (9-23); CALCIUM LEVEL 8.9 MG/DL (8.5-10.1); CARBON DIOXIDE LEVEL 30 MMOL/L (20-31); CHLORIDE LEVEL 104 MMOL/L (98-107); CHOLESTEROL LEVEL 202 MG/DL (<200); CHOLESTEROL RISK RATIO 5.53 (<5); CREATININE FOR GFR 0.63 MG/DL (0.55-1.30); FREE T4 0.86 NG/DL (0.89-1.76); GLOMERULAR FILTRATION RATE > 60.0 (>58); GLUCOSE, FASTING 111 MG/DL (60-100); HDL CHOLESTEROL 36.5 MG/DL (>40); LDL CHOLESTEROL 109.1 MG/DL (<100); NON-HDL-C 165.5 MG/DL; POTASSIUM SERUM 4.3 MMOL/L (3.5-5.1); SODIUM LEVEL 139 MMOL/L (136-145); TOTAL PROTEIN 6.9 G/DL (5.7-8.2); TRIGLYCERIDES LEVEL 282 MG/DL (<150)
== END ==
LOC: M SFHCCLAY 07:04
PROVIDERS: ATTEND Nurse Practitioner Family
DX: Z00.00 Encounter for general adult medical examination without abnormal findings (principal); F41.1 Generalized anxiety disorder; E66.09 Other obesity due to excess calories

== ENCOUNTER → 2023-01-08 | Outpatient (REF) | payer OTHER ==
[2023-01-08 11:42] LABS: C REACTIVE PROTEIN QUANTITATIV 1.8 MG/DL (<1.0)
[2023-01-08 11:43] LABS: FERRITIN 8.3 NG/ML (7.3-270.7); PERCENT SATURATION 5.4 % (13.2-45.0)
[2023-01-08 11:44] LABS: FOLATE 16.33 NG/ML (>5.4)
[2023-01-08 11:47] LABS: ERYTHROCYTE SEDIMENTATION RATE 45 mm/hr (0-20)
[2023-01-10 17:09] LABS: PROTEIN C ANTIGEN 120 % (60-150); PROTEIN C FUNCTIONAL ACTIVITY 159 % (73-180); PROTEIN S ANTIGEN FREE 109 % (61-136); PROTEIN S ANTIGEN TOTAL 100 % (60-150); PROTEIN S FUNCTIONAL ACTIVITY 92 % (63-140)
== END ==
LOC: M SFHCCLAY 07:49
PROVIDERS: ATTEND Nurse Practitioner Family
DX: D75.839 Thrombocytosis, unspecified (principal); D64.9 Anemia, unspecified

== ENCOUNTER → 2023-01-08 | Outpatient (CLI) | payer OTHER | LOC: M CLY 08:02 | PROVIDERS: ATTEND Nurse Practitioner Family | DX: R06.09 Other forms of dyspnea (principal) ==

== ENCOUNTER → 2023-01-22 | Outpatient (REF) | payer OTHER | LOC: M LAB REF 20:27 | PROVIDERS: ATTEND Physician Assistant | DX: M54.50 Low back pain, unspecified (principal); R35.0 Frequency of micturition ==

== ENCOUNTER → 2023-03-08 | Outpatient (REF) | payer OTHER ==
[2023-03-08 12:45] LABS: LDH LACTATE DEHYDROGENASE 171 U/L (120-246)
[2023-03-08 12:46] LABS: ALBUMIN 3.6 G/DL (3.2-5.2); ALKALINE PHOSPHATASE 97 U/L (46-116); ALT/SGPT 23 U/L (7.0-40); AST/SGOT 15 U/L (<34); BILIRUBIN,TOTAL 0.4 MG/DL (0.3-1.2); BLOOD UREA NITROGEN 9 MG/DL (9-23); CALCIUM LEVEL 9.1 MG/DL (8.5-10.1); CARBON DIOXIDE LEVEL 28 MMOL/L (20-31); CHLORIDE LEVEL 104 MMOL/L (98-107); CHOLESTEROL LEVEL 158 MG/DL (<200); CREATININE FOR GFR 0.65 MG/DL (0.55-1.30); GLOMERULAR FILTRATION RATE > 60.0 (>58); GLUCOSE, FASTING 106 MG/DL (60-100); POTASSIUM SERUM 4.3 MMOL/L (3.5-5.1); SODIUM LEVEL 139 MMOL/L (136-145); TOTAL PROTEIN 7.1 G/DL (5.7-8.2); TRIGLYCERIDES LEVEL 207 MG/DL (<150)
[2023-03-08 19:46] LABS: CPK CREATINE PHOSPHOKINASE 38 U/L (34-145)
== END ==
LOC: M LABDRAWC 12:10
PROVIDERS: ATTEND Nurse Practitioner Family
DX: D50.9 Iron deficiency anemia, unspecified (principal); R79.89 Other specified abnormal findings of blood chemistry; K62.5 Hemorrhage of anus and rectum; R10.9 Unspecified abdominal pain; R19.7 Diarrhea, unspecified; R79.82 Elevated C-reactive protein (CRP)

== ENCOUNTER → 2023-03-10 | Outpatient (REF) | payer OTHER | LOC: M LAB REF 13:17 | PROVIDERS: ATTEND Internal Medicine Gastroenterology | DX: K21.9 Gastro-esophageal reflux disease without esophagitis (principal) ==

== ENCOUNTER → 2023-03-10 | Outpatient (REF) | payer OTHER | LOC: M LAB REF 13:14 | PROVIDERS: ATTEND Nurse Practitioner Family | DX: D50.9 Iron deficiency anemia, unspecified (principal); R19.7 Diarrhea, unspecified; R79.89 Other specified abnormal findings of blood chemistry; K62.5 Hemorrhage of anus and rectum; R10.9 Unspecified abdominal pain; R79.82 Elevated C-reactive protein (CRP) ==

== ENCOUNTER 2023-03-25 09:24 | Day surgery (SDC) | payer OTHER ==
[~2023-03-25] VITALS: Ht 167.6 cm; Wt 109.6 kg
[~2023-03-25 09:24] MED LIST changes: +NS 1,000 ML IV ONE; +OMEP40CA5 PO
[2023-03-25] MEDS ORDERED: propofoL 200 MG/20 ML VIAL As Ordered ONE ×2 (11:15→12:12)
[2023-03-25] MEDS ORDERED: LIDOCAINE 2% 100MG/5ML SDV (FOR ANES.) As Ordered ONE (11:15)
[2023-03-25 12:42] VITALS: BP 112/57; O2SAT 97
== END 2023-03-25 12:48 | disposition home or self-care (01) ==
LOC: M OPP 09:24
PROVIDERS: ATTEND Internal Medicine Gastroenterology
DX: K92.1 Melena (principal); K64.4 Residual hemorrhoidal skin tags; K64.8 Other hemorrhoids; D50.9 Iron deficiency anemia, unspecified; K22.89 Other specified disease of esophagus; K29.70 Gastritis, unspecified, without bleeding; G47.30 Sleep apnea, unspecified; Z79.899 Other long term (current) drug therapy; Z88.2 Allergy status to sulfonamides; Z88.6 Allergy status to analgesic agent

== ENCOUNTER → 2023-03-29 | Outpatient (CLI) | payer OTHER ==
[~2023-03-29] MED LIST changes: +CARA1TAB6 PO; +CARV3.12; -NS 1,000 ML IV ONE; +OMEP40CA4 PO
== END ==
LOC: M WHC 13:05
PROVIDERS: ATTEND Nurse Practitioner Family
DX: R10.32 Left lower quadrant pain (principal); N20.0 Calculus of kidney; N28.1 Cyst of kidney, acquired

== ENCOUNTER → 2023-03-29 | Outpatient (CLI) | payer OTHER ==
[2023-03-29 15:45] LABS: BASO # 0.1 10^3/uL (0.0-0.2); BASO % 0.7 % (0.0-1.0); EOS # 0.3 10^3/uL (0.0-0.5); HEMATOCRIT 38.7 % (36.0-47.0); HEMOGLOBIN 11.8 g/dl (12.0-15.5); LYMPH # 2.7 10^3/uL (1.5-5.0); LYMPH % 26.4 % (24.0-44.0); MEAN CORPUSCULAR HEMOGLOBIN 23.5 pg (27.0-33.0); MEAN CORPUSCULAR HGB CONC 30.5 g/dl (32.0-36.5); MEAN CORPUSCULAR VOLUME 77.1 fl (80.0-96.0); MONO # 0.8 10^3/uL (0.0-0.8); MONO % 7.4 % (2.0-8.0); NEUTROPHILS # 6.3 10^3/uL (1.5-8.5); PLATELET COUNT, AUTOMATED 367 10^3/uL (150-450); RED BLOOD COUNT 5.02 10^6/uL (4.00-5.40); WHITE BLOOD COUNT 10.1 10^3/uL (4.0-10.0)
[2023-03-29 16:18] LABS: IRON (FE) 17 UG/DL (50-170); PERCENT SATURATION 4.8 % (13.2-45.0); TOTAL IRON BINDING CAPACITY 356 UG/DL (250-425)
[2023-03-29 16:19] LABS: ALBUMIN 3.7 G/DL (3.2-5.2); ALKALINE PHOSPHATASE 97 U/L (46-116); ALT/SGPT 16 U/L (7.0-40); AST/SGOT 10 U/L (<34); BILIRUBIN,TOTAL 0.2 MG/DL (0.3-1.2); BLOOD UREA NITROGEN 7 MG/DL (9-23); CALCIUM LEVEL 8.7 MG/DL (8.5-10.1); CARBON DIOXIDE LEVEL 27 MMOL/L (20-31); CHLORIDE LEVEL 105 MMOL/L (98-107); CREATININE FOR GFR 0.57 MG/DL (0.55-1.30); FERRITIN 11.2 NG/ML (7.3-270.7); GLOMERULAR FILTRATION RATE > 60.0 (>58); GLUCOSE, FASTING 81 MG/DL (60-100); POTASSIUM SERUM 3.8 MMOL/L (3.5-5.1); SODIUM LEVEL 138 MMOL/L (136-145); TOTAL PROTEIN 7.2 G/DL (5.7-8.2)
== END ==
LOC: M PLALAB 13:03
PROVIDERS: ATTEND Nurse Practitioner Family
DX: D50.9 Iron deficiency anemia, unspecified (principal); R19.7 Diarrhea, unspecified; R79.89 Other specified abnormal findings of blood chemistry; K62.5 Hemorrhage of anus and rectum; R10.9 Unspecified abdominal pain; R79.82 Elevated C-reactive protein (CRP); Z88.2 Allergy status to sulfonamides; Z88.6 Allergy status to analgesic agent

== ENCOUNTER 2023-03-31 14:10 | Emergency (ER) | payer OTHER ==
[~2023-03-31] VITALS: Ht 167.6 cm; Wt 113.6 kg
[~2023-03-31 14:10] MED LIST changes: -CARA1TAB6 PO; -CARV3.12; -OMEP40CA4 PO
[2023-03-31] MEDS ORDERED: CARV3.12 (14:22)
[2023-03-31 14:52] LABS: BASO # 0.1 10^3/uL (0.0-0.2); BASO % 0.3 % (0.0-1.0); EOS # 0.1 10^3/uL (0.0-0.5); EOS % 0.5 % (0.0-3.0); HEMATOCRIT 39.7 % (36.0-47.0); HEMOGLOBIN 12.2 g/dl (12.0-15.5); LYMPH # 1.6 10^3/uL (1.5-5.0); LYMPH % 10.8 % (24.0-44.0); MEAN CORPUSCULAR HEMOGLOBIN 23.5 pg (27.0-33.0); MEAN CORPUSCULAR HGB CONC 30.7 g/dl (32.0-36.5); MEAN CORPUSCULAR VOLUME 76.5 fl (80.0-96.0); MONO # 0.7 10^3/uL (0.0-0.8); MONO % 4.5 % (2.0-8.0); NEUTROPHILS # 12.6 10^3/uL (1.5-8.5); NEUTROPHILS % 83.2 % (36.0-66.0); PLATELET COUNT, AUTOMATED 431 10^3/uL (150-450); RED BLOOD COUNT 5.19 10^6/uL (4.00-5.40); WHITE BLOOD COUNT 15.2 10^3/uL (4.0-10.0)
[2023-03-31 15:23] LABS: LIPASE 28 U/L (12-53)
[2023-03-31 15:27] LABS: ALBUMIN 3.9 G/DL (3.2-5.2); ALKALINE PHOSPHATASE 102 U/L (46-116); ALT/SGPT 18 U/L (7.0-40); AST/SGOT 14 U/L (<34); BILIRUBIN,DIRECT 0.1 MG/DL (<0.4); BILIRUBIN,TOTAL 0.5 MG/DL (0.3-1.2); BLOOD UREA NITROGEN 7 MG/DL (9-23); CALCIUM LEVEL 9.1 MG/DL (8.5-10.1); CARBON DIOXIDE LEVEL 30 MMOL/L (20-31); CHLORIDE LEVEL 105 MMOL/L (98-107); CREATININE FOR GFR 0.58 MG/DL (0.55-1.30); GLOMERULAR FILTRATION RATE > 60.0 (>58); GLUCOSE, FASTING 113 MG/DL (60-100); POTASSIUM SERUM 4.4 MMOL/L (3.5-5.1); SODIUM LEVEL 143 MMOL/L (136-145); TOTAL PROTEIN 7.5 G/DL (5.7-8.2)
[2023-03-31 15:32] LABS: HCG, SERUM QUALITATIVE NEGATIVE (NEGATIVE)
[2023-03-31] MEDS: GASTROGRAFIN SOLUTION 30ML PO SCH ×2 (15:57→16:21)
[2023-03-31] MEDS ORDERED: ISOVUE-370 76% 100ML VIAL As Ordered ONE (17:12)
[2023-03-31 18:09] VITALS: BP 127/69; TEMP 97.1; O2SAT 97
[2023-03-31] MEDS ORDERED: OMEP40CA4 PO (18:49)
[2023-03-31] MEDS ORDERED: CARA1TAB6 PO (18:49)
== END 2023-03-31 19:04 | disposition home or self-care (01) ==
LOC: EDBD 14:10 → M ED 14:10
DX: K29.70 Gastritis, unspecified, without bleeding (principal); Z79.899 Other long term (current) drug therapy; Z88.2 Allergy status to sulfonamides; Z88.6 Allergy status to analgesic agent
CPT/HCPCS: 71260; 74177; 80048; 80076; 83690; 84703; 85025; 99284; Q9963; Q9967

== ENCOUNTER → 2023-04-03 | Outpatient (REF) | payer OTHER ==
[~2023-04-03] MED LIST changes: +CARA1TAB6 PO; +CARV3.12; +OMEP40CA4 PO
== END ==
LOC: M LAB REF 12:42
PROVIDERS: ATTEND Physician Assistant
DX: R19.7 Diarrhea, unspecified (principal)

== ENCOUNTER → 2023-05-07 | Outpatient (CLI) | payer OTHER | LOC: M CARPUL 08:27 | PROVIDERS: ATTEND Physician Assistant | DX: R06.00 Dyspnea, unspecified (principal) ==

== ENCOUNTER → 2023-06-25 | Outpatient (REF) | payer OTHER ==
[2023-06-25 12:07] LABS: BASO # 0.1 10^3/uL (0.0-0.2); BASO % 0.6 % (0.0-1.0); EOS # 0.2 10^3/uL (0.0-0.5); EOS % 2.1 % (0.0-3.0); HEMATOCRIT 43.2 % (36.0-47.0); HEMOGLOBIN 13.9 g/dl (12.0-15.5); LYMPH % 19.5 % (24.0-44.0); MEAN CORPUSCULAR HEMOGLOBIN 26.8 pg (27.0-33.0); MEAN CORPUSCULAR HGB CONC 32.2 g/dl (32.0-36.5); MEAN CORPUSCULAR VOLUME 83.4 fl (80.0-96.0); MONO # 0.7 10^3/uL (0.0-0.8); MONO % 6.6 % (2.0-8.0); NEUTROPHILS # 7.4 10^3/uL (1.5-8.5); NEUTROPHILS % 70.6 % (36.0-66.0); PLATELET COUNT, AUTOMATED 409 10^3/uL (150-450); RED BLOOD COUNT 5.18 10^6/uL (4.00-5.40); WHITE BLOOD COUNT 10.5 10^3/uL (4.0-10.0)
[2023-06-25 12:14] LABS: IRON (FE) 50 UG/DL (50-170); PERCENT SATURATION 18.4 % (13.2-45.0); TOTAL IRON BINDING CAPACITY 272 UG/DL (250-425)
[2023-06-25 12:15] LABS: ALBUMIN 3.6 G/DL (3.2-5.2); ALKALINE PHOSPHATASE 90 U/L (46-116); ALT/SGPT 18 U/L (7.0-40); AST/SGOT < 8 U/L (<34); BILIRUBIN,TOTAL 0.4 MG/DL (0.3-1.2); BLOOD UREA NITROGEN 8 MG/DL (9-23); CALCIUM LEVEL 8.7 MG/DL (8.5-10.1); CARBON DIOXIDE LEVEL 28 MMOL/L (20-31); CHLORIDE LEVEL 107 MMOL/L (98-107); CREATININE FOR GFR 0.62 MG/DL (0.55-1.30); FERRITIN 114.9 NG/ML (7.3-270.7); GLOMERULAR FILTRATION RATE > 60.0 (>58); GLUCOSE, FASTING 99 MG/DL (60-100); SODIUM LEVEL 141 MMOL/L (136-145); TOTAL PROTEIN 6.6 G/DL (5.7-8.2)
[2023-06-25 12:16] LABS: VITAMIN B12 LEVEL 258 PG/ML (211-911)
[2023-06-25 12:22] LABS: ERYTHROCYTE SEDIMENTATION RATE 27 mm/hr (0-20)
== END ==
LOC: M LABDRAWC 11:12
PROVIDERS: ATTEND Nurse Practitioner Family
DX: D50.9 Iron deficiency anemia, unspecified (principal); R79.89 Other specified abnormal findings of blood chemistry; K62.5 Hemorrhage of anus and rectum; R10.9 Unspecified abdominal pain; R19.7 Diarrhea, unspecified; R79.82 Elevated C-reactive protein (CRP); Z88.2 Allergy status to sulfonamides; Z88.6 Allergy status to analgesic agent

== ENCOUNTER → 2023-07-15 | Outpatient (REF) | payer OTHER ==
[2023-07-15 12:45] LABS: CPK CREATINE PHOSPHOKINASE 42 U/L (34-145); LDH LACTATE DEHYDROGENASE 145 U/L (120-246)
[2023-07-15 12:46] LABS: ALBUMIN 3.4 G/DL (3.2-5.2); ALKALINE PHOSPHATASE 86 U/L (46-116); ALT/SGPT 14 U/L (7.0-40); AST/SGOT < 8 U/L (<34); BILIRUBIN,TOTAL 0.3 MG/DL (0.3-1.2); BLOOD UREA NITROGEN 9 MG/DL (9-23); CALCIUM LEVEL 8.8 MG/DL (8.5-10.1); CARBON DIOXIDE LEVEL 27 MMOL/L (20-31); CHLORIDE LEVEL 107 MMOL/L (98-107); CHOLESTEROL LEVEL 172 MG/DL (<200); GLOMERULAR FILTRATION RATE > 60.0 (>58); GLUCOSE, FASTING 109 MG/DL (60-100); PHOSPHORUS LEVEL 2.8 MG/DL (2.5-4.9); POTASSIUM SERUM 4.2 MMOL/L (3.5-5.1); SODIUM LEVEL 140 MMOL/L (136-145); TOTAL PROTEIN 6.6 G/DL (5.7-8.2); TRIGLYCERIDES LEVEL 242 MG/DL (<150)
[2023-07-17 23:07] LABS: ANA (HEP2) Negative (.); SSA SJOGRENS A <0.2 AI (0.0-0.9); SSB SJOGRENS B 0.2 AI (0.0-0.9)
== END ==
LOC: M LABDRAWC 11:08
PROVIDERS: ATTEND Nurse Practitioner Family
DX: D50.9 Iron deficiency anemia, unspecified (principal); R79.89 Other specified abnormal findings of blood chemistry; R70.0 Elevated erythrocyte sedimentation rate; K62.5 Hemorrhage of anus and rectum; R10.9 Unspecified abdominal pain; R19.7 Diarrhea, unspecified; R79.82 Elevated C-reactive protein (CRP)

== ENCOUNTER → 2023-07-23 | Outpatient (CLI) | payer OTHER ==
[~2023-07-23] MED LIST changes: +METHACHOLINE KIT INH ONE
== END ==
LOC: M CARPUL 07:38
PROVIDERS: ATTEND Physician Assistant
DX: R06.00 Dyspnea, unspecified (principal)
CPT/HCPCS: 94070; J7674

== ENCOUNTER → 2023-08-12 | Outpatient (CLI) | payer OTHER ==
[~2023-08-12] MED LIST changes: +E-Z-PAQUE 96% w/w SUSP 176GM BTL As Ordered ONE; -METHACHOLINE KIT INH ONE
== END ==
LOC: M RAD 09:25
PROVIDERS: ATTEND Internal Medicine Gastroenterology
DX: R06.00 Dyspnea, unspecified (principal); D50.9 Iron deficiency anemia, unspecified

== ENCOUNTER → 2024-06-24 | Outpatient (CLI) | payer OTHER ==
[~2024-06-24] MED LIST changes: -E-Z-PAQUE 96% w/w SUSP 176GM BTL As Ordered ONE
== END ==
LOC: M SLEEP HO 10:44
PROVIDERS: ATTEND Physician Assistant
DX: G47.33 Obstructive sleep apnea (adult) (pediatric) (principal)

== ENCOUNTER → 2024-09-08 | Outpatient (REF) | payer OTHER ==
[2024-09-08 15:04] LABS: BASO # 0.1 10^3/uL (0.0-0.2); BASO % 0.5 % (0.0-1.0); EOS # 0.2 10^3/uL (0.0-0.5); EOS % 1.9 % (0.0-3.0); HEMATOCRIT 37.8 % (36.0-47.0); HEMOGLOBIN 11.7 g/dl (12.0-15.5); LYMPH # 1.8 10^3/uL (1.5-5.0); LYMPH % 17.1 % (24.0-44.0); MEAN CORPUSCULAR VOLUME 87.3 fl (80.0-96.0); MONO # 0.7 10^3/uL (0.0-0.8); MONO % 6.3 % (2.0-8.0); NEUTROPHILS # 7.8 10^3/uL (1.5-8.5); NEUTROPHILS % 73.8 % (36.0-66.0); PLATELET COUNT, AUTOMATED 379 10^3/uL (150-450); RED BLOOD COUNT 4.33 10^6/uL (4.00-5.40); WHITE BLOOD COUNT 10.6 10^3/uL (4.0-10.0)
[2024-09-08 15:08] LABS: ALBUMIN 3.5 G/DL (3.2-5.2); ALKALINE PHOSPHATASE 74 U/L (35-104); ALT/SGPT 17 U/L (7.0-40); AST/SGOT < 8 U/L (<34); BILIRUBIN,TOTAL 0.3 MG/DL (0.3-1.2); BLOOD UREA NITROGEN 10 MG/DL (9-23); CALCIUM LEVEL 8.9 MG/DL (8.5-10.1); CARBON DIOXIDE LEVEL 28 MMOL/L (20-31); CHLORIDE LEVEL 105 MMOL/L (98-107); CHOLESTEROL LEVEL 181 MG/DL (<200); CHOLESTEROL RISK RATIO 4.76 (<5); CREATININE FOR GFR 0.65 MG/DL (0.55-1.30); GLOMERULAR FILTRATION RATE > 60.0 (>58); GLUCOSE, FASTING 96 MG/DL (60-100); LDL CHOLESTEROL 93.2 MG/DL (<100); POTASSIUM SERUM 4.7 MMOL/L (3.5-5.1); SODIUM LEVEL 138 MMOL/L (136-145); TOTAL PROTEIN 6.8 G/DL (5.7-8.2); TRIGLYCERIDES LEVEL 249 MG/DL (<150)
[2024-09-08 15:09] LABS: THYROID STIMULATING HORMONE 0.319 uIU/ML (0.55-4.78)
[2024-09-08 15:10] LABS: FREE T4 0.88 NG/DL (0.89-1.76)
[2024-09-08 15:26] LABS: HEMOGLOBIN A1c 4.7 % (4.0-6.0)
[2024-09-09 13:17] LABS: THYROID PEROXIDASE ANTIBODY < 28.0 U/ML (<60.0)
== END ==
LOC: M SFHCCLAY 07:40
PROVIDERS: ATTEND Nurse Practitioner Family
DX: F41.1 Generalized anxiety disorder (principal); E66.09 Other obesity due to excess calories; R79.89 Other specified abnormal findings of blood chemistry

== ENCOUNTER → 2025-04-06 | Outpatient (REF) | payer OTHER ==
[2025-04-06 12:52] LABS: FREE T4 0.84 NG/DL (0.89-1.76)
[2025-04-06 12:53] LABS: ALT/SGPT 20 U/L (7.0-40); AST/SGOT 10 U/L (<34); CALCIUM LEVEL 8.8 MG/DL (8.5-10.1); CARBON DIOXIDE LEVEL 29 MMOL/L (20-31); CHLORIDE LEVEL 105 MMOL/L (98-107); CREATININE FOR GFR 0.68 MG/DL (0.55-1.30); GLOMERULAR FILTRATION RATE > 90.0 (>58); POTASSIUM SERUM 4.7 MMOL/L (3.5-5.1); SODIUM LEVEL 142 MMOL/L (136-145)
== END ==
LOC: M SFHCCLAY 07:52
PROVIDERS: ATTEND Nurse Practitioner Family
DX: F41.1 Generalized anxiety disorder (principal); E66.09 Other obesity due to excess calories